=== PATIENT | male | born 1980 | race African-American/Black ===

== ENCOUNTER 2017-06-18 04:05 | Emergency (ER) | payer MEDICARE ==
[2017-06-18 06:51] LABS: #Basophils 0.1 thou/uL (0.0-0.2); #Eosinphils 0.4 thou/uL (0.0-0.7); #Lymphocytes 2.7 thou/uL (1.20-3.40); #Monocytes 0.8 thou/uL (0.11-0.59); #Neutrophils 7.9 thou/uL (1.40-6.50); %Basophils 0.9 % (0.0-1.0); %Eosinophils 3.3 % (0.0-10.0); %Lymphocytes 22.8 % (21.0-51.0); %Monocytes 6.7 % (0.0-10.0); Hematocrit 40.7 % (42.0-52.0); Mean Platelet Volume 9.5 fL (7.4-10.4); White Blood Cell (WBC) Count 11.9 thou/uL (4.8-10.8)
== END 2017-06-18 07:32 | disposition home or self-care (01) ==
LOC: ERS 04:05
DX: R19.7 Diarrhea, unspecified (principal); E78.5 Hyperlipidemia, unspecified; I11.0 Hypertensive heart disease with heart failure; I50.9 Heart failure, unspecified; E11.9 Type 2 diabetes mellitus without complications; H54.7 Unspecified visual loss; F17.220 Nicotine dependence, chewing tobacco, uncomplicated; Z86.73 Personal history of transient ischemic attack (TIA), and cerebral infarction without residual deficits; Z79.4 Long term (current) use of insulin; Z79.899 Other long term (current) drug therapy
CPT/HCPCS: 36415; 85025; 99285

== ENCOUNTER 2018-03-06 07:08 | Emergency (ER) | payer MEDICARE ==
[2018-03-06] MEDS ORDERED: diphenhydrAMINE 50 MG/ML VIAL ONE (07:30)
[2018-03-06 07:53] LABS: #Basophils 0.1 thou/uL (0.0-0.2); #Eosinphils 0.3 thou/uL (0.0-0.7); #Lymphocytes 2.3 thou/uL (1.20-3.40); #Monocytes 0.8 thou/uL (0.11-0.59); #Neutrophils 8.2 thou/uL (1.40-6.50); %Basophils 0.8 % (0.0-1.0); %Eosinophils 2.8 % (0.0-10.0); %Lymphocytes 19.3 % (21.0-51.0); Hemoglobin 11.3 g/dL (14.0-18.0); Mean Corpuscular HGB CONC 31.9 g/dL (32.0-36.0); Mean Corpuscular Hemoglobin 27.2 pg (27.0-31.0); Mean Corpuscular Volume 85.1 fL (78.0-98.0); Mean Platelet Volume 8.9 fL (7.4-10.4); Platelet Count 330 thou/uL (130-400); RBC Distribution Width 13.3 % (11.5-14.5); Red Blood Cell (RBC) Count 4.17 mill/uL (4.70-6.10); White Blood Cell (WBC) Count 11.7 thou/uL (4.8-10.8)
[2018-03-06 08:12] LABS: ALT (SGPT) 20 U/L (8-55); AST (SGOT) 18 U/L (5-34); Acetaminophen Less than 6.0 mcg/mL (10.0-30.0); Albumin 3.3 g/dL (3.5-5.0); Alcohol Less than 10 mg/dL (Less than 10); Alkaline Phosphatase 130 U/L (40-150); Anion Gap 14 mmol/L (10-20); BUN (Urea Nitrogen) 45 mg/dL (8.9-20.6); Bilirubin, Total 0.8 mg/dL (0.2-1.2); Calc. Creatinine Clearance 0 mL/min (70-130); Calcium 8.9 mg/dL (7.8-10.44); Carbon Dioxide 23 mmol/L (22-29); Chloride 106 mmol/L (98-107); Estimated GFR-MDRD 35; Globulin 3.9 g/dL (2.4-3.5); Glucose 150 mg/dL (70-105); Potassium 4.5 mmol/L (3.5-5.1); Protein, Total 7.2 g/dL (6.0-8.3); Salicylate Less than 8.0 mg/dL (15.0-30.0); Sodium 138 mmol/L (136-145)
--- NOTE | 2018-03-06 08:29 | CT ---
CT OF THE BRAIN WITHOUT CONTRAST: Date: 03/06/18 COMPARISON: 02/06/16. HISTORY: Involuntary muscle spasms with twitching in the arm and leg. TECHNIQUE: Multiple contiguous axial images were obtained in a CT of the brain without contrast. FINDINGS: The brain is normal in morphology and attenuation without focal lesions or confluent areas of infarct ion. There is no evidence of hydrocephalus, intracranial hemorrhage, or extra-axial fluid collection. The calvarium and overlying soft tissues are unremarkable. Mucus retention cysts are seen in bilatera l maxillary sinuses. The mastoid air cells are well aerated. IMPRESSION: No evidence of acute intracranial abnormality. POS: [facility]
[2018-03-06 10:04] LABS: Bilirubin Negative (Negative); Blood, Urine Negative (Negative); Clarity CLEAR (Clear); Glucose, Urine (Dipstick) Negative (Negative); Leukocyte Negative (Negative); Nitrite Negative (Negative); Protein, Urine (Dipstick) 30 mg/dL (Neg-Trace); Specific Gravity, Urine 1.008 (1.002-1.036); pH, Urine 5.5 (5.0-9.0)
[2018-03-06 10:05] LABS: Bacteria/HPF None Seen HPF (None Seen); Hyaline Casts/LPF 0-3 HYALINE CAST LPF (0-3 Hyaline); Pathc Cast-AUWi Flag 0.29 (0-2.49); RBC/HPF None Seen HPF (0-3); Squamous Epithelial 0-3 HPF (0-3); WBC/HPF 0-3 HPF (0-3)
[2018-03-06 10:15] LABS: Amphetamine Not Detected (NotDetected); Barbiturates Screen Not Detected (NotDetected); Benzodiazepine Screen Not Detected (NotDetected); Cocaine Metabolite Screen Not Detected (NotDetected); Medtox Control Line Valid? VALID (VALID); Medtox Reader # READER 4; Methadone Not Detected (NotDetected); Methamphetamine Not Detected (NotDetected); Opiate Screen Not Detected (NotDetected); Oxycodone Screen Not Detected (NotDetected); Phencyclidine (PCP) Not Detected (NotDetected); THC/Cannabinoid Screen Not Detected (NotDetected); Tricyclic Screen Not Detected (NotDetected)
== END 2018-03-06 11:01 | disposition home or self-care (01) ==
LOC: ERS 07:08
DX: G25.71 Drug induced akathisia (principal); E78.5 Hyperlipidemia, unspecified; E11.9 Type 2 diabetes mellitus without complications; I11.0 Hypertensive heart disease with heart failure; I50.9 Heart failure, unspecified; F17.220 Nicotine dependence, chewing tobacco, uncomplicated; Z86.73 Personal history of transient ischemic attack (TIA), and cerebral infarction without residual deficits; Z79.899 Other long term (current) drug therapy; Z79.891 Long term (current) use of opiate analgesic; Z79.4 Long term (current) use of insulin
CPT/HCPCS: 36415; 70450; 80053; 80306; 80307; 81003; 81015; 85025; 96361; 96374; J1200

== ENCOUNTER 2018-11-05 20:26 | Inpatient (IN) | payer MEDICARE ==
[2018-11-05 20:51] LABS: #Basophils 0.2 thou/uL (0.0-0.2); #Eosinphils 0.4 thou/uL (0.0-0.7); #Neutrophils 8.3 thou/uL (1.40-6.50); %Basophils 1.6 % (0.0-1.0); %Eosinophils 2.9 % (0.0-10.0); %Lymphocytes 23.2 % (21.0-51.0); %Monocytes 7.6 % (0.0-10.0); %Neutrophils 64.7 % (42.0-75.0); Hemoglobin 14.2 g/dL (14.0-18.0); Mean Corpuscular HGB CONC 30.3 g/dL (32.0-36.0); Mean Corpuscular Hemoglobin 26.1 pg (27.0-31.0); Mean Platelet Volume 9.8 fL (7.4-10.4); Platelet Count 374 thou/uL (130-400); RBC Distribution Width 13.6 % (11.5-14.5); Red Blood Cell (RBC) Count 5.46 mill/uL (4.70-6.10); White Blood Cell (WBC) Count 12.8 thou/uL (4.8-10.8)
[2018-11-05 21:00] LABS: Prothrombin Time 13.6 SEC (12.0-14.7)
[2018-11-05 21:01] LABS: PTT 21.3 SEC (22.9-36.1)
--- NOTE | 2018-11-05 21:11 | CT ---
CT OF THE BRAIN WITHOUT CONTRAST: 11/05/18 INDICATION: History of left sided weakness since 6 a.m. yesterday. COMPARISON: Prior CT of the brain dated 03/06/18. FINDINGS: There is a new hypodensity seen within the posterior right globus pallidus as well as portions of the right thalamus suspicious for acute to subacute lacunar infarctions. The right thalamic infarct appe ars more acute than the right posterior globus pallidus infarct. The right globus pallidus infarct ap pears more subacute to chronic in nature. There is a chronic lacunar infarction involving the left ce rebellar hemisphere. Septum pellucidum and third ventricle are midline. No acute intracranial hemorrh age or hydrocephalus is present. Skull and extracranial soft tissues are unremarkable. IMPRESSION: 1. Subacute to chronic appearing right posterior globus pallidus lacunar infarction. 2. Acute appearing lacunar infarction involving the right thalamus. 3. Findings called to Dr. Bravo at 8:53 p.m. on 11/05/18. Code CR POS: [facility]
[2018-11-05 21:15] LABS: ALT (SGPT) 10 U/L (8-55); AST (SGOT) 14 U/L (5-34); Albumin 3.1 g/dL (3.5-5.0); Alkaline Phosphatase 167 U/L (40-150); Anion Gap 14 mmol/L (10-20); BUN (Urea Nitrogen) 16 mg/dL (8.9-20.6); Bilirubin, Total 0.7 mg/dL (0.2-1.2); Calc. Creatinine Clearance 0 mL/min (70-130); Calcium 9.4 mg/dL (7.8-10.44); Carbon Dioxide 28 mmol/L (22-29); Chloride 100 mmol/L (98-107); Estimated GFR-MDRD 59; Globulin 4.2 g/dL (2.4-3.5); Glucose 287 mg/dL (70-105); Potassium 3.3 mmol/L (3.5-5.1); Protein, Total 7.3 g/dL (6.0-8.3); Sodium 139 mmol/L (136-145)
--- NOTE | 2018-11-05 22:18 | PDOC.FPRHP ---
- History of Present Illness Chief Complaint: L-sided weakness & paresthesias History of Present Illness: The patient is a 38YO AAM with a PMH significant for 5 previous CVAs, morbid obesity and poorly controlled IDDMII and HTN who presented to the ED with a CC of L-sided paresthesias and weakness that had gotten progressively worse over the course the day of presentation. Per the patient, he first began to have L- sided paresthesias about 1 day prior to presentation. Then, over the course of today he developed some dysarthria and left-sided drooling as well as weakness in his left arm and leg that became so severe he had difficulty walking even with his walker. This prompted him to then go to the ED for further evaluation. The patient denies any associated chest pain, SOB, vision changes, or syncope. He did endorse improvement in his weakness since arriving to the ED. ED Course: 10mg Hydralazine & 325mg ASA - Allergies/Adverse Reactions Allergies Allergy/AdvReac Type Severity Reaction Status Date / Time No Known Drug Allergies Allergy Verified 11/06/18 03:05 - Home Medications Medication Instructions Recorded Confirmed Type Furosemide [Lasix] 40 mg PO DAILY 06/25/13 02/06/16 History Lisinopril [Zestril] 20 mg PO BID 06/25/13 02/06/16 History Acetaminophen [Tylenol Regular 650 mg PO Q4HR PRN 06/30/13 02/06/16 History Strength] Artificial Tears [Tears Naturale 1 - 2 drop EA EYE ASDIR PRN 10/24/13 02/06/16 History Free] Insulin Detemir [Levemir Flexpen] 40 units SQ QAM 10/24/13 02/06/16 History Carvedilol [Coreg] 25 mg PO BID 11/10/13 02/06/16 History metFORMIN HCl 1,000 mg PO BID- 11/10/13 02/06/16 History Amlodipine [Norvasc] 5 mg PO DAILY 03/15/15 02/06/16 History Aspirin 325 mg PO DAILY 03/15/15 02/06/16 History Isosorbide Mononitrate 20 mg PO TID 03/15/15 02/10/16 History Spironolactone [Aldactone] 25 mg PO QAM- 03/15/15 02/06/16 History Atorvastatin Calcium [Lipitor] 80 mg PO HS 02/10/16 02/10/16 History Calcium Carbonate [Tums] 1,000 mg PO PRN PRN #0 tab 02/10/16 Rx Pantoprazole [Protonix] 40 mg PO DAILY #0 tab 02/10/16 Rx - History PMHx: CVA in 2015 w/ possibly 4 other CVAs per patient and mother, HLD, HTN, IDDMII, morbid obesity, 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 No EtOH or drug use. - Review of Systems General: denies: fever/chills, weight/appetite/sleep changes Eyes: denies: eye pain, vision changes ENT: reports: other (no sore throat). denies: rhinorrhea Respiratory: denies: cough, shortness of breath Cardiovascular: denies: chest pain, palpitation, edema Gastrointestinal: denies: nausea, vomiting, diarrhea, constipation Genitourinary: reports: other (no hematuria). denies: dysuria Skin: denies: rashes, lesions Musculoskeletal: denies: pain Neurological: reports: numbness, weakness, other (slurred speech). denies: syncope Psychological: denies: anxiety, depression - Vital signs BP: 203/156 HR: 72 RR: 16 Tmax: 98.1F Pox: 93% on RA Wt: 182 kg - Physical Exam Constitutional: NAD, awake, alert and oriented, other (morbidly obese) HEENT: normocephalic and atraumatic, EOMI, no scleral icterus, grossly normal hearing, MMM, oropharynx clear, other (blind in left eye w/ decreased pupillary repsonse to light; right pupil reactive to light) Neck: supple, FROM Heart: RRR, normal S1/S2 Lungs: CTAB, no respiratory distress, other (poor air movement 2/2 body habitus) Abdomen: soft, non-tender, bowel sounds present Musculoskeletal: normal structure, normal tone, other (decreased ROM in B/L LEs 2/2 body habitus) Neurological: other (4/5 strength in left extremities compared to 5/5 on the R; no dysmetria or pronator drift noted, proprioception intact; decreased sensation in V2-3 in right side of face w/ mild dysarthria, otherwise server support technician intact ) Skin: no rash/lesions, good turgor Heme/Lymphatic: no unusual bruising or bleeding, no purpura, no petechia Psychiatric: normal mood and affect, good judgment and insight, intact recent and remote memory FMR H&P: Results - Labs Result Diagrams: 11/05/18 20:11/06/18 05:22 Lab results: WBC 12.8 thou/uL (4.8-10.8) H 11/05/18 20:29 Hgb 14.2 g/dL (14.0-18.0) 11/05/18 20: Hct 46.9 % (42.0-52.0) 11/05/18 20: MCV 86.0 fL (78.0-98.0) 11/05/18 20: Plt Count 374 thou/uL (130-400) 11/05/18 20: Neutrophils % 64.7 % (42.0-75.0) 11/05/18 20:29 Sodium 139 mmol/L (136-145) 11/05/18 20:29 Potassium 3.3 mmol/L (3.5-5.1) L 11/05/18 20: Chloride 100 mmol/L (98-107) 11/05/18 20: Carbon Dioxide 28 mmol/L (22-29) 11/05/18 20: BUN 16 mg/dL (8.9-20.6) 11/05/18 20: Creatinine 1.62 mg/dL (0.7-1.3) H 11/05/18 20: Glucose 287 mg/dL (70-105) H 11/05/18 20:29 Calcium 9.4 mg/dL (7.8-10.44) 11/05/18 20: Total Bilirubin 0.7 mg/dL (0.2-1.2) 11/05/18 20: AST 14 U/L (5-34) 11/05/18 20: ALT 10 U/L (8-55) 11/05/18 20:29 Alkaline Phosphatase 167 U/L (40-150) H 11/05/18 20:29 Serum Total Protein 7.3 g/dL (6.0-8.3) 11/05/18 20:29 Albumin 3.1 g/dL (3.5-5.0) L 11/05/18 20:29 - EKG Interpretation EKG: NSR - Radiology Interpretation CT scan - head Status: report reviewed by me (subacute to chronic R posterior lacunar infact w / acute R lacunar infarct involving the thalamus) FMR H&P: A/P - Problem List (1) CVA (cerebral vascular accident) Current Visit: Yes Status: Acute Code(s): I63.9 - CEREBRAL INFARCTION, UNSPECIFIED Qualifiers: Laterality of affected vessel: right (2) Malignant hypertension Current Visit: Yes Status: Active Code(s): I10 - ESSENTIAL (PRIMARY) HYPERTENSION (3) DMII (diabetes mellitus, type 2) Current Visit: Yes Status: Chronic Qualifiers: Diabetes mellitus snf insulin use: with snf use Diabetes mellitus complication detail: with diabetic retinopathy (4) Dyslipidemia Current Visit: Yes Status: Chronic Code(s): E78.5 - HYPERLIPIDEMIA, UNSPECIFIED (5) Morbid obesity Current Visit: Yes Status: Chronic Code(s): E66.01 - MORBID (SEVERE) OBESITY DUE TO EXCESS CALORIES (6) (HFpEF) heart failure with preserved ejection fraction Current Visit: Yes Status: Chronic Code(s): I50.30 - UNSPECIFIED DIASTOLIC ( CONGESTIVE) HEART FAILURE - Plan Acute ischemic CVA: - Found on CT involving R thalamus. Stroke team consulted in the ED. Outside window for TPA but symptoms improved slightly s/p 325mg ASA in the ED. - Will admit to stroke unit for monitoring overnight and consult neurology in the AM. - Will allow permissive HTN through ~0900 tomorrow but will treat BPs >210/120 w / PRN labetalol. - Will continue 325mg ASA QD and statin therapy as well. - Will get an ECHO and MRA of head and neck in the AM. Malignant HTN - Will allow permissive HTN as described above through tomorrow AM. - Will give a 1x dose of norvasc 10mg HS tonight and will start on IGNACIO antihypertensive therapy tomorrow after 0900. PHONG vs. CKDIII: - eGFR of 59 which appears to be within baseline range per chart review. Could just be 2/2 severely uncontrolled HTN. s/p 1L in the ED. - Will continue to monitor renal function w/ QD BMPs. Hypokalemia: - K of 3.3 on admission. - Will get a repeat in the AM and replace PRN. 3. CKD III vs PHONG - Current GFR 59, similar to previous GFR - In ER, had gotten a fluid bolus. - Plan, monitor with routine morning lab, but does not appear to much change from baseline. Will work on his HTN/DM HLD - Will resume statin therapy. - FLP also ordered to assess current lipid levels as patient has only been taking DM meds since he has not seen a PCP in years. DMII w/ retinopathy - BG elevated on presentation. Will get an A1c since patient has no PCP. Will resume home levemir dosing in the AM but will cover w/ mild SSI overnight. -ACHS accuchecks and hypoglycemia protocol. HFpEF - Aware, last echo in 2015 showed preserved EF of 50-55%. Repeat ECHO ordered for the AM for CVA workup. - Will fluid restrict and start on HH diet. - Will resume appropriate meds in the AM. h/o multiple CVAs - Aware, will resume ASA and statin therapy. Morbid obesity - Aware, will encourage lifestyle changes. FMR H&P: Upper Level - Pertinent history 38M with morbid obesity, prior history of stroke presents for left sided weakness, going on for 4 days, but with most recent episode 17 hours before this interview. His left side weakness involve both upper and lower extremities. Family member add that he had slurred speech. His symptom onset was sudden. In the ER, he received nitro which apparently resolved some of his symptom. At this time, he still feels weaker on left side, but improved. He has history of htn, but has not taken any HTN medication for "over a year". He says he gets his diabetes medication from an "insurance doctor". In ER, he has gotten [address] head shows subacute right posterior globus pallidus lacunar infarct and acute lacunar infarct of right thalmus - Pertinent findings Gen: Poor historian, grossly alert and oriented x3 HEENT: Normocephalic. Vision and hearing grossly intact. Moist mucosal membrane. Left eye noted to have fixed pupil, discoloration CV: Appear RRR, difficult auscultation due to body habitus Resp: Appear CTA, difficult due to body habitus GI: Normoactive, soft, pannus present Ext: No edema noted Neuro: 5/5 on right extremities, 4/5 on left. Normal tone. Sensation normal except subjective decrease sensation to fine touch on left face in V2-3 distribution. CNII-XII grossly intact except decreased left sided shoulder shrug. - Plan Date/Time: 11/05/181 I, [Phillip Polanco], have evaluated this patient and agree with findings/plan as outlined by internal salesperson resident. Pertinent changes/additions are listed here. 1. Acute ischemic stroke - Acute lacnuar infarct of rt thalamus, outside of TPA time range and in vessel that woudl be too small for thrombectomy - Will continue stroke work up and maximize medical treatment of his contributing medical issues. - Dispo to stroke, will eventually may need rehab placement - Will get neuro consult, PT/OT, dysphagia screening, MRI/MRA head/neck, cardiac echo, A1c, HLD - Start on amlodipine 10, labetol 10 for BP over 220/120 2. Hypokalemia - Asymptomatic At 3.3. One time dose of IV potassium 40. - Recheck at next bmp. 3. CKD III vs PHONG - Current GFR 59, similar to previous GFR - In ER, had gotten a fluid bolus. - Plan, monitor with routine morning lab, but does not appear to much change from baseline. Will work on his HTN/DM 4. DM2 - Chronic issue - Hold metformin in prep for imaging - SSI and continue home insulin, diabetic diet. A1c as he has no PCP at moment Addendum - Attending - Attending Attestation Date/Time: 11/06/18 0705 I personally evaluated the patient and discussed the management with Dr. Tavarez and Sherri on day of admission 11/05. I agree with and repeated the History, Examination, Assessment and Plan documented above with any addition or exceptions noted below. Admit to neuro. Standard BP control (see Dr. Polanco's parameters), ST/OT/PT, medical comorbidity management. Bring sugars down < 200.
[2018-11-05] MEDS ORDERED: Aspirin 325 MG TAB ONE (22:34)
[2018-11-05] MEDS ORDERED: hydrALAZINE 20 MG/ML VIAL ONE (23:50)
[2018-11-06] MEDS ORDERED: Acetaminophen 325 MG TAB PO PRN ×2 (02:22→03:14)
[2018-11-06] MEDS ORDERED: Ondansetron ODT 4 MG TAB SL PRN (02:22)
[2018-11-06] MEDS ORDERED: Sodium Chloride 0.9% 1,000 ML IV SCH (02:22)
[2018-11-06] MEDS ORDERED: Ondansetron PF 4 MG/2 ML Vial IVP PRN (02:22)
[2018-11-06 02:56] VITALS: BMI 58.4
[2018-11-06] MEDS ORDERED: Labetalol HCl 100 MG/20 ML VIAL SLOW IVP PRN (03:14)
[2018-11-06] MEDS ORDERED: Dextrose 50% Abboject 50 ML SYRINGE SLOW IVP PRN (03:14)
[2018-11-06] MEDS ORDERED: Ondansetron ODT 4 MG TAB PO PRN (03:14)
[2018-11-06] MEDS ORDERED: Amlodipine 10 MG TAB PO SCH (03:14)
[2018-11-06] MEDS ORDERED: Calcium Carbonate 500 MG ChewTAB PO PRN (03:14)
[2018-11-06] MEDS ORDERED: Dextrose 5% in Water 1,000 ML IV PRN (03:14)
[2018-11-06] MEDS ORDERED: HumaLOG 300 UNITS/3 ML VIAL SC PRN (03:14)
[2018-11-06 06:10] LABS: Hemoglobin A1c 14.1 % (4.0-6.0)
[2018-11-06 06:24] LABS: Anion Gap 13 mmol/L (10-20); BUN (Urea Nitrogen) 15 mg/dL (8.9-20.6); Calc. Creatinine Clearance 173 mL/min (70-130); Calcium 9.1 mg/dL (7.8-10.44); Carbon Dioxide 26 mmol/L (22-29); Cardiac Risk 9.2 (Less than 4.5); Chloride 103 mmol/L (98-107); Cholesterol 321 mg/dl (< 200 Desired); Estimated GFR-MDRD 64; Glucose 224 mg/dL (70-105); HDL Cholesterol 35 mg/dL (>60 Neg Risk); LDL Cholesterol, Calculated 246 mg/dL; Potassium 3.7 mmol/L (3.5-5.1); Sodium 138 mmol/L (136-145); Triglycerides 199 mg/dL (Less than 150)
--- NOTE | 2018-11-06 06:36 | PDOC.FM ---
- Subjective Subjective: Endorses left sided weakness similar to right sided weakness he had in the past with prior stroke. Went to rehab after last stroke for PT/OT. Uses a walker to ambulate at home. Blind in left eye 2/2 uncontrolled DM. No events overnight. Has not seen PCP in years due to transportation and felt that he always "just told me to lose weight and refilled my medications." - Objective MAR Reviewed: Yes Vital Signs & Weight: Vital Signs (12 hours) Temp Pulse Resp BP Pulse Ox 11/06/18 03:17 78 164/95 H 11/06/18 02:07 98.6 F 67 20 195/104 H 95 Weight Weight 179.668 kg I&O: 11/04/18 11/05/18 11/06/18 06:59 06:59 06:59 Intake Total 490 Output Total 650 Balance -160 Result Diagrams: 11/05/18 20:29 11/06/18 05:22 Phys Exam - Physical Examination Constitutional: NAD morbidly obese corneal clouding in left eye. Right RRL Neck: supple Respiratory: no wheezing, clear to auscultation bilateral Cardiovascular: RRR, no significant murmur Gastrointestinal: soft, non-tender, positive bowel sounds Musculoskeletal: no edema Neurological: moves all 4 limbs right foot myclonus. DTR 2+ patellar and biceps. 5/5 strength bilateral wrist vasc tech, hip F/E, plantarflexion/dorsiflexion Psychiatric: normal affect, A&O x 3 Skin: normal turgor Dx/Plan (1) CVA (cerebral vascular accident) Code(s): I63.9 - CEREBRAL INFARCTION, UNSPECIFIED Status: Acute Qualifiers: Laterality of affected vessel: right (2) CHF (congestive heart failure) Code(s): I50.9 - HEART FAILURE, UNSPECIFIED Status: Acute (3) Malignant hypertension Code(s): I10 - ESSENTIAL (PRIMARY) HYPERTENSION Status: Active (4) (HFpEF) heart failure with preserved ejection fraction Code(s): I50.30 - UNSPECIFIED DIASTOLIC (CONGESTIVE) HEART FAILURE Status: Chronic (5) DMII (diabetes mellitus, type 2) Status: Chronic Qualifiers: Diabetes mellitus snf insulin use: with long term care pharmacist use Diabetes mellitus complication detail: with diabetic retinopathy (6) Dyslipidemia Code(s): E78.5 - HYPERLIPIDEMIA, UNSPECIFIED Status: Chronic (7) Morbid obesity Code(s): E66.01 - MORBID (SEVERE) OBESITY DUE TO EXCESS CALORIES Status: Chronic (8) Cardiomyopathy Code(s): I42.9 - CARDIOMYOPATHY, UNSPECIFIED Status: Active (9) Diabetes mellitus type 1 Code(s): E10.9 - TYPE 1 DIABETES MELLITUS WITHOUT COMPLICATIONS Status: Active - Plan Plan: 38yo male with hx of CVAs presents with Acute ischemic CVA Acute ischemic CVA: - CT: subacute to chronic R posterior lacunar infact w/ acute R lacunar infarct involving thalamus - Stroke team consulted in ED. Outside window for TPA, symptoms improved slightly s/p 325mg ASA - Consulted Neurology - Permissive HTN until 0900, restarting home BP meds at 1000. Until then treat BPs >210/120 with PRN labetalol. - Continue ASA & statin - Echo & CTA of head/neck ordered HTN - Permissive HTN until 0900. Until then treat BPs >210/120 with PRN labetalol. - Will start Amlodipine, Lisinopril- HCTZ this AM PHONG vs. CKDIII - Initial GFR 59, likely pts baseline. Likely 2/2 uncontrolled HTN - Continue to monitor with BMPs DMII - A1c: 14.1% - Continue home levemir - SSI and hypoglycemic protocol - ACHS accuchecks, HH/CC diet HFpEF - Echo 2016: EF 50-55%. - Echo today - Strict I&Os, daily wt, fluid restriction, HH/CC diet - Continue home meds h/o multiple CVAs - Continue ASA and Statin HLD - Continue home meds Morbid obesity Hypokalemia, resolved Code Status: FULL DVT ppx: Lovenox PCP: None Addendum - Attending - Attending Attestation Date/Time: 11/06/18 1046 I personally evaluated the patient and discussed the management with Dr. Melchor. I agree with the History, Examination, Assessment and Plan documented above with any addition or exceptions noted below. Patient here with suspected repeat CVA. He has uncontrolled HTN, DM, and HLD. We will obtain MRI. Attempt to improve HTN control, glucose control, and add statin. We will also escalate therapy to ASA and Plavix. Stroke team and Neuro consult. Therapy services. Echo being performed at this time and f/u with report. If systolic dysfxn noted will need to cease Norvasc. Continue BB and ACEi for BP control.
[2018-11-06] MEDS: HumaLOG 300 UNITS/3 ML VIAL SC PRN ×3 (06:41→17:56)
[2018-11-06] MEDS: Enoxaparin Sodium 60 MG/0.6 ML SYRINGE SC SCH (07:49)
[2018-11-06] MEDS ORDERED: INSULIN GLARGINE SC SCH (08:00)
[2018-11-06] MEDS ORDERED: Famotidine 20 MG TAB PO PRN (08:54)
[2018-11-06] MEDS: Lisinopril/Hydrochlorothiazide 10 mg/12.5 mg Tablet PO SCH (08:58)
[2018-11-06] MEDS ORDERED: Aspirin 325 mg Enteric Coated Tablet PO SCH (09:00)
[2018-11-06] MEDS ORDERED: INSULIN DETEMIR 40 UNIT SQ SCH (09:00)
[2018-11-06] MEDS ORDERED: Famotidine 20 MG TAB PO SCH (09:00)
[2018-11-06] MEDS ORDERED: Aspirin 325 MG TAB PO SCH (09:00)
[2018-11-06] MEDS ORDERED: Potassium Chloride 20 MEQ TAB PO SCH (09:00)
[2018-11-06] MEDS ORDERED: Isosorbide Mononitrate 20 MG TAB PO SCH ×2 (10:00→15:00)
[2018-11-06] MEDS ORDERED: Carvedilol 25 MG TAB PO SCH ×2 (10:00→21:00)
[2018-11-06] MEDS ORDERED: Lisinopril 20 MG TAB PO SCH ×2 (10:00→21:00)
--- NOTE | 2018-11-06 14:01 | CT ---
CTA OF THE NECK UTILIZING IV COTNRAST AND 33D REFORMATTED IMAGING: INDICATION: History of stroke alert last night with left-sided weakness and facial droop with slurring. COMPARISON: Prior CTA of the head dated 02/06/2016. FINDINGS: The common carotid and internal carotid arteries are tortuous. The common carotids have a retrophary ngeal course as well as portions of the internal carotid artery within the cervical segment. No defi nite hemodynamically significant stenosis is evident. Again, there is very poor opacification of the right vertebral artery suspicious multifocal areas of occlusion. There is reconstitution of flow wi thin a diminutive-appearing distal right vertebral artery at the level of C1. The left vertebral art ugo is dominant and appears to be patent. There is limited detail due to the patient's body habitus and beam scattered artifact. No definite pathologically enlarged lymph nodes are evident. Visualized parotid, submandibular, and thyroid glands appear within normal limits. The visualized aerodigestive tract reveals no definite a cute abnormality. There is prominence of the palatine tonsils that does heavily narrow the oral cavi ty best seen on image 163 of series 2. The lung apices are clear. No definite acute osseous abnormality is evident. IMPRESSION: 1. Stable areas of multifocal occlusion involving a diminutive-appearing right vertebral artery. There is reconstitution of flow of the right vertebral artery at the level of the C1 level. 2. No hemodynamically significant stenosis is seen involving the internal carotid arteries, comm on carotid arteries, or left vertebral artery. 3. Prominence of the palatine tonsils causes prominent narrowing of the oropharynx. POS: [facility]
[2018-11-06] MEDS ORDERED: Iopamidol 370 76% 100 ML VIAL ONE (16:35)
[2018-11-06] MEDS: Atorvastatin Calcium 40 MG TAB PO SCH (20:54)
--- NOTE | 2018-11-07 06:23 | PDOC.FM ---
- Subjective Subjective: No acute events overnight. Patient reports difficulty with deep inspiration this AM. Denies chest pain or palpitations. Patient reports ambulating with PT yesterday. States his weakness has improved overall with residual weakness in the left lower extremity. - Objective MAR Reviewed: Yes Vital Signs & Weight: Vital Signs (12 hours) Temp Pulse Resp BP Pulse Ox 11/07/18 04:00 98.3 F 85 19 155/91 H 97 11/07/18 00:00 98.7 F 66 20 131/70 96 11/06/18 20:00 99.3 F 69 19 140/74 93 L Weight Weight 179.668 kg I&O: 11/05/18 11/06/18 11/07/18 06:59 06:59 06:59 Intake Total 490 700 Output Total 650 550 Balance -160 150 Result Diagrams: 11/05/18 20:29 11/06/18 05:22 Phys Exam - Physical Examination Constitutional: NAD HEENT: PERRLA, moist MMs, sclera anicteric Neck: supple, full ROM Respiratory: no wheezing, no rales, no rhonchi, clear to auscultation bilateral shallow breaths noted Cardiovascular: RRR, no significant murmur Gastrointestinal: soft, non-tender, no distention Musculoskeletal: no edema Neurological: normal sensation, moves all 4 limbs patient with LLE weakness, 4/5 strength Psychiatric: normal affect, A&O x 3 Skin: no rash, normal turgor, cap refill <2 seconds Dx/Plan (1) (HFpEF) heart failure with preserved ejection fraction Code(s): I50.30 - UNSPECIFIED DIASTOLIC (CONGESTIVE) HEART FAILURE Status: Chronic (2) CVA (cerebral vascular accident) Code(s): I63.9 - CEREBRAL INFARCTION, UNSPECIFIED Status: Acute Qualifiers: Laterality of affected vessel: right (3) Dyslipidemia Code(s): E78.5 - HYPERLIPIDEMIA, UNSPECIFIED Status: Chronic (4) Morbid obesity Code(s): E66.01 - MORBID (SEVERE) OBESITY DUE TO EXCESS CALORIES Status: Chronic - Plan Plan: 38yo male with hx of CVAs presents with Acute ischemic CVA Acute ischemic CVA - CT: subacute to chronic R posterior lacunar infact w/ acute R lacunar infarct involving thalamus - Stroke team consulted in ED. Outside window for TPA, symptoms improved slightly s/p 325mg ASA - Consulted Neurology, appreciate recs - Monitor BPs, amlodipine and lisinopril/HCTZ started - CTA: stable areas of multifocal occlusion involving a diminutive-appearing right vertebral artery; reconstitution of right vertebral artery at level of C1. No significant stenosis of internal carotids, common carotids, or left vertebral artery. Echo: 1/3 diastolic dysfunction, EF not seen well, mildly dilated LA. MRI unable to perform due to body habitus. - Continue ASA & statin - CM consulted for DC planning: HH vs SNF HTN - Permissive HTN period allowed. - Amlodipine, Lisinopril/HCTZ started for BP control HPONG vs. CKDIII - Initial GFR 59, likely pts baseline. Likely 2/2 uncontrolled HTN - Continue to monitor with BMPs DMII - A1c: 14.1% - Continue home levemir - SSI and hypoglycemic protocol - ACHS accuchecks, HH/CC diet HFpEF - Echo 2016: EF 50-55%. - Echo 11/06: LV not well seen, 1/3 diastolic dysfunction, mildly dilated LA. Could consider LIANG, but unlikely to change number operator. Will refer to CHF clinic upon discharge. - BNP Pending - Strict I&Os, daily wt, fluid restriction, HH/CC diet - Continue home meds h/o multiple CVAs - Continue ASA and Statin HLD - Continue home meds PEGGY - likely due to body habitus - CTA showed prominent palatine tonsils with prominent narrowing of oropharynx. May need ENT referral outpatient. Sleep study outpatient. Morbid obesity Hypokalemia, resolved DISPO: likely dc in 1-2 days Addendum - Attending - Attending Attestation Date/Time: 11/07/18 0634 I personally evaluated the patient and discussed the management with Dr. Carvajal. I agree with the History, Examination, Assessment and Plan documented above with any addition or exceptions noted below. Patient stable this morning, reports some tightness with inspiration. His neurological deficit has improved quite a bit. Awaiting final therapy recommendations. On ASA/Plavix. Neuro consult pending. Continue to improved BP and BS control. Anticipate discharge in next day or so pending clinical course. Unable to obtain MRI due to body habitus and Echo poor quality due to the same.
[2018-11-07 07:45] LABS: #Basophils 0.1 thou/uL (0.0-0.2); #Eosinphils 0.3 thou/uL (0.0-0.7); #Lymphocytes 1.8 thou/uL (1.20-3.40); #Monocytes 0.7 thou/uL (0.11-0.59); #Neutrophils 6.5 thou/uL (1.40-6.50); %Basophils 0.7 % (0.0-1.0); %Eosinophils 3.5 % (0.0-10.0); %Lymphocytes 19.5 % (21.0-51.0); %Monocytes 7.3 % (0.0-10.0); Hemoglobin 12.8 g/dL (14.0-18.0); Mean Corpuscular HGB CONC 30.6 g/dL (32.0-36.0); Mean Corpuscular Volume 84.9 fL (78.0-98.0); Mean Platelet Volume 9.4 fL (7.4-10.4); Platelet Count 343 thou/uL (130-400); RBC Distribution Width 13.8 % (11.5-14.5); Red Blood Cell (RBC) Count 4.93 mill/uL (4.70-6.10); White Blood Cell (WBC) Count 9.4 thou/uL (4.8-10.8)
[2018-11-07] MEDS ORDERED: Insulin Glargine 42 UNITS in Pre-Filled Syringe 1 EACH SC SCH (08:00)
[2018-11-07 08:05] LABS: Anion Gap 10 mmol/L (10-20); BUN (Urea Nitrogen) 17 mg/dL (8.9-20.6); Calc. Creatinine Clearance 134 mL/min (70-130); Calcium 9.1 mg/dL (7.8-10.44); Carbon Dioxide 27 mmol/L (22-29); Chloride 103 mmol/L (98-107); Estimated GFR-MDRD 47; Glucose 206 mg/dL (70-105); Potassium 3.8 mmol/L (3.5-5.1); Sodium 136 mmol/L (136-145)
[2018-11-07] MEDS: HumaLOG 300 UNITS/3 ML VIAL SC PRN ×2 (08:14→11:56)
[2018-11-07] MEDS: Enoxaparin Sodium 60 MG/0.6 ML SYRINGE SC SCH (08:16)
[2018-11-07] MEDS: Lisinopril/Hydrochlorothiazide 10 mg/12.5 mg Tablet PO SCH (08:17)
[2018-11-07] MEDS: Amlodipine 10 MG TAB PO SCH (08:17)
[2018-11-07] MEDS: Clopidogrel Bisulfate 75 MG TAB PO SCH (08:17)
[2018-11-07] MEDS ORDERED: Amlodipine 5 MG TAB PO SCH (09:00)
[2018-11-07] MEDS ORDERED: Aspirin 81 mg Enteric Coated Tablet PO SCH (09:00)
[2018-11-07] MEDS: Insulin Glargine 40 UNITS in Pre-Filled Syringe 1 EACH SC SCH (09:53)
--- NOTE | 2018-11-07 11:29 | CON ---
DATE OF TELEMEDICINE CONSULTATION: 11/07/2018 CHIEF COMPLAINT: Acute stroke. HISTORY OF PRESENT ILLNESS: The patient is a 38-year-old man, who has had 5 strokes. He reports he is not on any anti-platelet agent at home. He developed numbness on the right side from a prior stroke and this Friday, he started to have numbness of the left side along with weakness. He was walking normally prior to this incident and he now feels that his arm is stronger, but left leg is still remaining weak 4 or 5 days later. He has slurred speech at times. He is having a difficult time taking a deep breath due to his positioning in the bed. There is no history of any incoordination or loss of vision due to this event. PAST MEDICAL HISTORY: The patient is diabetic and he is insulin-dependent diabetic. He has had 5 CVAs in the past, most recent is on the right side with right- sided numbness. He has hyperlipidemia, hypertension, morbid obesity, left eye blindness due to diabetic retinopathy, and cataract. PREVIOUS SURGICAL HISTORY: Bilateral cataract surgery, appendectomy, and left knee surgery. FAMILY HISTORY: Father has diabetes and coronary artery disease. Mother and brother have heart failure. Mother also is hypertensive. SOCIAL HISTORY: He used to smoke, now he only uses smokeless tobacco, not using any drugs. He has occasional alcohol, but none prior to this event. REVIEW OF SYSTEMS: PULMONARY: Positive for difficulty with breathing. GI: Negative for any diarrhea, vomiting, or nausea. NEUROLOGIC: Positive for numbness and weakness. ENT: Normal. OPHTHALMOLOGIC: Positive for left eye blindness. ENDOCRINE: Positive for diabetes. HEMATOLOGIC: Negative for anemia or bleeding diathesis. PSYCHOLOGIC: Negative for anxiety or depression. LABORATORY WORKUP: White count 9.4, hemoglobin 12.8, hematocrit 41.9, platelets 343. PT 13.6, INR 1.0, PTT 21.3. Chemistry; sodium 136, potassium 3.8, chloride 103, bicarb 27, BUN 17, creatinine 1.95, and glucose 206. DIAGNOSTIC STUDIES: CT of the head showed chronic subacute to chronic right posterior globus pallidus lacunar infarct, acute right thalamic lacune and he also has other chronic microvascular ischemic changes. CT angiography of the brain, head, and neck shows stable areas of multifocal occlusion involving a diminishing appearing right vertebral artery. There is reconstruction of flow in the right vertebral artery at the C1 level. No stenosis in the ICAs, common carotid to the left vertebral artery. Prominence of the palatine tonsils cause prominent narrowing of the oropharynx. PHYSICAL EXAMINATION: VITAL SIGNS: Blood pressure 151/95, temperature 98.2, pulse 89, and respiratory rate 20. GENERAL APPEARANCE: Somewhat overweight gentleman, who appears uncomfortable in bed due to difficulty taking a deep breath. CHEST: Clear vesicular breathing. CARDIOVASCULAR: S1 and S2 heard. No murmurs. ABDOMEN: Soft. NEUROLOGIC: Higher intellectual functions. Normal orientation to time, place, and person. Cranial nerves 2 through 12, left pupil has cataract. He is blind in the left eye. Right pupil 2 mm and reactive to light. He has right-sided numbness of the face, left side sensation is normal. Normal hearing bilaterally. No facial asymmetry was noted. Tongue midline. No atrophy noted. Normal elevation of palate. Motor bulk normal. Tone normal. Strength 5/5 bilaterally in upper and lower extremities. Muscle groups tested are iliopsoas, hamstrings, quadriceps, ankle dorsiflexion, plantar flexion, deltoid, biceps, triceps, wrist extension, flexion, finger extension and flexion bilaterally. Sensory examination, decreased sensation to touch in the right upper extremity, normal in both lower extremities and left upper extremity. The patient complained of tingling. Proprioception was normal in upper and lower extremities bilaterally. Deep tendon reflexes, 2 in the left knee jerk and right biceps, 1 in the triceps bilaterally and brachioradialis, and 1+ knee jerk on the right side. Cerebellar; normal [id number], [id number]. IMPRESSION: The patient is a 38-year-old man with diabetes, obesity, and hypertension. His echocardiogram is normal, but there is some limitation per his report that it is technically difficult. Hence, the CT of the head shows acute lacunar infarct in the right thalamic area. He seems to have uncontrolled diabetes and this could be most likely his cause of acute strokes. However, he is not on any anti-platelet agent and his examination currently shows normal strength, but decreased sensation in the right upper extremity. TREATMENT RECOMMENDATIONS: 1. Please start the patient on aspirin 325 mg per day. 2. Risk factor controls including diabetes and hypertension control. The patient is already on statin. Agree with atorvastatin. Please complete his workup including a LIANG. Consider MRI of the brain if possible due to his body weight and carotid ultrasound. We will follow up again tomorrow. Job ID: [id number] MTDD
--- NOTE | 2018-11-07 15:34 | EKG ---
Test Reason : Blood Pressure : / mmHG Vent. Rate : 078 BPM Atrial Rate : 078 BPM P-R Int : 172 ms QRS Dur : 096 ms QT Int : 394 ms P-R-T Axes : 019 -23 051 degrees QTc Int : 449 ms Normal sinus rhythm Voltage criteria for left ventricular hypertrophy No STEMI Abnormal ECG Confirmed by HORACIO JEONG M.D. ([id number]), market editor VIVIANA BRADLEY ([id number] on 11/07/2018 3:33:55 PM Referred By: Confirmed By:HORACIO JEONG M.D.
[2018-11-07] MEDS: Atorvastatin Calcium 40 MG TAB PO SCH (21:06)
[2018-11-07] MEDS: Insulin Glargine 10 UNITS in Pre-Filled Syringe 1 EACH SC SCH (21:07)
[2018-11-07] MEDS: Artificial Tear Sol 15 ML BOT EA EYE PRN (21:08)
--- NOTE | 2018-11-08 06:17 | PDOC.FM ---
- Subjective Subjective: NAEO. Patient resting comfortably in bed. Patient states he has ambulated to the bathroom and stood up with PT. Patient states he is willing to go to rehab to regain strength. Denies chest pain, palpitations, SOB, abdominal pain, NVD. - Objective MAR Reviewed: Yes Vital Signs & Weight: Vital Signs (12 hours) Temp Pulse Resp BP Pulse Ox 11/08/18 04:00 98.9 F 100 20 144/88 H 96 11/08/18 00:00 98.5 F 66 19 142/86 H 95 11/07/18 20:40 93 L 11/07/18 20:00 98.9 F 84 19 176/85 H 93 L Weight Weight 180.802 kg I&O: 11/06/18 11/07/18 11/08/18 06:59 06:59 06:59 Intake Total 490 700 720 Output Total 650 550 425 Balance -160 150 295 Result Diagrams: 11/07/18 07:38 11/08/18 06:45 Phys Exam - Physical Examination Constitutional: NAD HEENT: PERRLA, moist MMs, sclera anicteric Neck: supple, full ROM Respiratory: no wheezing, no rales, no rhonchi, clear to auscultation bilateral Cardiovascular: RRR, no significant murmur, no rub Gastrointestinal: soft, non-tender, no distention, positive bowel sounds Musculoskeletal: no edema left sided weakness in LLE, improved Psychiatric: normal affect, A&O x 3 Skin: no rash, normal turgor, cap refill <2 seconds Dx/Plan (1) (HFpEF) heart failure with preserved ejection fraction Code(s): I50.30 - UNSPECIFIED DIASTOLIC (CONGESTIVE) HEART FAILURE Status: Chronic (2) CVA (cerebral vascular accident) Code(s): I63.9 - CEREBRAL INFARCTION, UNSPECIFIED Status: Acute Qualifiers: Laterality of affected vessel: right (3) Dyslipidemia Code(s): E78.5 - HYPERLIPIDEMIA, UNSPECIFIED Status: Chronic (4) Morbid obesity Code(s): E66.01 - MORBID (SEVERE) OBESITY DUE TO EXCESS CALORIES Status: Chronic - Plan Plan: 38yo male with hx of CVAs presents with Acute ischemic CVA Acute ischemic CVA - CT: subacute to chronic R posterior lacunar infact w/ acute R lacunar infarct involving thalamus - Stroke team consulted in ED. Outside window for TPA, symptoms improved slightly s/p 325mg ASA - Consulted Neurology, appreciate recs. Will start 325 ASA, continue statin, and order LIANG per recommendations. - Monitor BPs, amlodipine and lisinopril/HCTZ started - CTA: stable areas of multifocal occlusion involving a diminutive-appearing right vertebral artery; reconstitution of right vertebral artery at level of C1. No significant stenosis of internal carotids, common carotids, or left vertebral artery. Echo: 1/3 diastolic dysfunction, EF not seen well, mildly dilated LA. MRI unable to perform due to body habitus. - CM consulted for DC planning: HH vs SNF. Rehab screen placed. HTN - Permissive HTN period allowed. - Amlodipine, Lisinopril/HCTZ started for BP control PHONG vs. CKDIII - Initial GFR 59, likely pts baseline. Likely 2/2 uncontrolled HTN - Continue to monitor with BMPs DMII - A1c: 14.1% - SSI and hypoglycemic protocol - ACHS accuchecks, HH/CC diet - Lantus HFpEF - Echo 2015: EF 50-55%. - Echo 11/06: LV not well seen, 1/3 diastolic dysfunction, mildly dilated LA. Will refer to CHF clinic upon discharge. Will order LIANG to complete work up per neuro recs. - Strict I&Os, daily wt, fluid restriction, HH/CC diet - Continue home meds h/o multiple CVAs - Continue ASA and Statin HLD - Continue home meds PEGGY - likely due to body habitus - CTA showed prominent palatine tonsils with prominent narrowing of oropharynx. May need ENT referral outpatient. Sleep study outpatient. Morbid obesity Hypokalemia, resolved DISPO: will need LIANG completed and dc pending dc placement/planning Addendum - Attending - Attending Attestation Date/Time: 11/08/18 [id number] I personally evaluated the patient and discussed the management with Dr. Carvajal. I agree with the History, Examination, Assessment and Plan documented above with any addition or exceptions noted below. Patient reports doing well and overall at baseline neuro status. He has been withholding fluids and he appears a little dry this morning, with Cr bump. Mild fluid repletion. Otherwise, BP and BS improved control with current meds. Will begin working on rehab or SNF placement for patient as he is agreeable to that. Continue ASA/Plavix.
[2018-11-08] MEDS: HumaLOG 300 UNITS/3 ML VIAL SC PRN ×3 (06:40→17:24)
[2018-11-08 07:19] LABS: Anion Gap 14 mmol/L (10-20); BUN (Urea Nitrogen) 18 mg/dL (8.9-20.6); Calc. Creatinine Clearance 99 mL/min (70-130); Calcium 8.8 mg/dL (7.8-10.44); Carbon Dioxide 23 mmol/L (22-29); Chloride 104 mmol/L (98-107); Estimated GFR-MDRD 34; Glucose 169 mg/dL (70-105); Potassium 3.7 mmol/L (3.5-5.1); Sodium 137 mmol/L (136-145)
[2018-11-08] MEDS ORDERED: Sodium Chloride 0.9% 1,000 ML IV SCH (07:30)
[2018-11-08] MEDS ORDERED: Lactated Ringer's 1,000 ML IV SCH (07:30)
[2018-11-08] MEDS: Artificial Tear Sol 15 ML BOT EA EYE PRN ×2 (08:19→21:39)
[2018-11-08] MEDS: Amlodipine 10 MG TAB PO SCH (08:26)
[2018-11-08] MEDS: Aspirin 325 mg Enteric Coated Tablet PO SCH (08:26)
[2018-11-08] MEDS: Enoxaparin Sodium 60 MG/0.6 ML SYRINGE SC SCH (08:27)
[2018-11-08] MEDS: Lisinopril/Hydrochlorothiazide 20 mg/12.5 mg Tablet PO SCH (08:27)
[2018-11-08] MEDS: Clopidogrel Bisulfate 75 MG TAB PO SCH (08:27)
[2018-11-08] MEDS: Insulin Glargine 40 UNITS in Pre-Filled Syringe 1 EACH SC SCH (08:28)
--- NOTE | 2018-11-08 13:05 | PRG ---
DATE OF TELEMEDICINE SERVICE: 11/08/2018 INTERVAL HISTORY: The patient is still complaining of tingling on the right side. Laboratory workup, no new lab since yesterday other than glucose 183 and his MRI is still pending. He is waiting for LIANG. PHYSICAL EXAMINATION: VITAL SIGNS: Blood pressure was 152/100, temperature 98.7, pulse 77, respiratory rate 20, and O2 sats 96%. NEUROLOGIC: Higher intellectual function. Normal orientation to time, place, and person. Cranial nerves 2-12 normal. No facial asymmetry. Tongue midline. Normal extraocular movements. He has a cataract and blindness in the left eye. Motor examination: Bulk normal, tone normal, strength 5/5 in upper and lower extremities bilaterally. Sensory examination: Tingling on the right side, but no deficit. IMPRESSION: The patient with a new onset thalamic infarct and he has significant risk factors with diabetes as well as hypertension. We are currently pending a transesophageal echocardiogram to evaluate his cardiac status. There is strong family history of heart failure. At this time, the patient is stable neurologically. RECOMMENDATIONS: Plan for aspirin 325 mg per day. MRI of brain if possible due to his body weight. Consider transfer to Physical Medicine and Rehab. Call Neurology if there are any further questions. Please make sure the patient is also on a statin. Job ID: [id number] MTDD
[2018-11-08] MEDS: Atorvastatin Calcium 40 MG TAB PO SCH (21:38)
[2018-11-08] MEDS: Insulin Glargine 10 UNITS in Pre-Filled Syringe 1 EACH SC SCH (21:39)
--- NOTE | 2018-11-09 05:55 | PDOC.FM ---
- Subjective Subjective: Patient reports improvement in symptoms. Denies any headache, blurry visionor chest pain. Says he was able to walk to the bedside commode with assistance yesterday. Otherwise, has only stood up by his bed with PT. Endorses feeling like he has fluid on his lungs saying it is difficult for home to catch his breath at times. - Objective MAR Reviewed: Yes Vital Signs & Weight: Vital Signs (12 hours) Temp Pulse Resp BP Pulse Ox 11/09/18 05:47 97.9 F 77 16 189/107 H 95 11/08/18 20:40 95 11/08/18 20:00 98.9 F 66 20 128/75 95 Weight Weight 180.161 kg I&O: 11/07/18 11/08/18 11/09/18 06:59 06:59 06:59 Intake Total 221 272 3704 Output Total 550 425 500 Balance 150 295 640 Result Diagrams: 11/07/18 07:38 11/08/18 06:45 Phys Exam - Physical Examination Constitutional: NAD HEENT: PERRLA Neck: supple, full ROM Respiratory: no wheezing, no rales, no rhonchi, clear to auscultation bilateral no respiratory distress Cardiovascular: RRR, no significant murmur Gastrointestinal: soft, positive bowel sounds obese abdomen Musculoskeletal: edema present trace pitting edema in B/L ankles Neurological: non-focal, moves all 4 limbs 5/5 strength throughout Psychiatric: normal affect, A&O x 3 Skin: no rash Dx/Plan (1) CVA (cerebral vascular accident) Code(s): I63.9 - CEREBRAL INFARCTION, UNSPECIFIED Status: Acute Qualifiers: Laterality of affected vessel: right (2) Malignant hypertension Code(s): I10 - ESSENTIAL (PRIMARY) HYPERTENSION Status: Active (3) DMII (diabetes mellitus, type 2) Status: Chronic Qualifiers: Diabetes mellitus retirement insulin use: with letterer use Diabetes mellitus complication detail: with diabetic retinopathy (4) Dyslipidemia Code(s): E78.5 - HYPERLIPIDEMIA, UNSPECIFIED Status: Chronic (5) Morbid obesity Code(s): E66.01 - MORBID (SEVERE) OBESITY DUE TO EXCESS CALORIES Status: Chronic (6) (HFpEF) heart failure with preserved ejection fraction Code(s): I50.30 - UNSPECIFIED DIASTOLIC (CONGESTIVE) HEART FAILURE Status: Chronic - Plan Plan: 38yo morbidly obses AAM with hx of multiple previous CVAs presents with an acute ischemic CVA. Acute ischemic CVA - CT: subacute to chronic R posterior lacunar infact w/ acute R lacunar infarct involving thalamus - Stroke team consulted in ED. Outside window for TPA, symptoms improved slightly s/p 325mg ASA - Consulted Neurology, appreciate recs. Will continue 325 ASA & statin. NPO today and will consult cardiology for LIANG per neurology recs. - Will continue to monitor BPs closely. See tx plan below. - CTA: stable areas of multifocal occlusion involving a diminutive-appearing right vertebral artery; reconstitution of right vertebral artery at level of C1. No significant stenosis of internal carotids, common carotids, or left vertebral artery. TTE: 1/3 diastolic dysfunction, EF not seen well, mildly dilated LA. Unable to perform MRI 2/2 body habitus. - CM consulted for DC planning: HH vs SNF. Rehab screen placed yesterday. HTN - Will continue Amlodipine & consider increasing Lisinopril/HCTZ to BID pending renal function since patient is still having significantly elevated BPs throughout the day up to the 170s systolic. PHONG vs. CKDIII - Initial GFR 59, likely pts baseline. Likely 2/2 uncontrolled HTN. However, eGFR yesterday down to 34. s/p 1 bag of LR @ 100mL/hr. - Repeat BMP pending for this AM. Will continue to monitor renal function closely. DMII - A1c 14.1% on admission. - SSI and hypoglycemic protocol. - ACHS accuchecks, HH/CC diet - Patient started on 40U lantus QAM & 10 QHS. Required an additional 6 units of SSI yesterday. Will adjust long-acting insulin accordingly PRN. HFpEF - Echo 2016: EF 50-55%. - Echo 11/06: LV not well seen, 1/3 diastolic dysfunction, mildly dilated LA. Will refer to CHF clinic upon discharge. Will consult cards for possible LIANG today to complete work up per neuro recs. - Will continue strict I&Os, daily wts, fluid restriction, HH/CC diet h/o multiple CVAs - Continue ASA and Statin. HLD - Continue statin. PEGGY - likely due to body habitus - CTA showed prominent palatine tonsils with prominent narrowing of oropharynx. May need ENT referral outpatient. Sleep study outpatient. Morbid obesity - Aware, will sexual abuse counsellor on need for lifestyle changes and weight loss. Hypokalemia - resolved - Will continue to monitor w/ QD BMPs. DISPO: Possible LIANG today. DC pending dc placement/planning. Awaiting rehab acceptance.
[2018-11-09] MEDS: Artificial Tear Sol 15 ML BOT EA EYE PRN ×2 (11:10→19:53)
[2018-11-09] MEDS: Insulin Glargine 56 UNITS in Pre-Filled Syringe 1 EACH SC SCH (11:10)
[2018-11-09] MEDS: Aspirin 325 mg Enteric Coated Tablet PO SCH (11:12)
[2018-11-09] MEDS: Amlodipine 10 MG TAB PO SCH (11:12)
[2018-11-09] MEDS: Clopidogrel Bisulfate 75 MG TAB PO SCH (11:13)
[2018-11-09] MEDS: Enoxaparin Sodium 60 MG/0.6 ML SYRINGE SC SCH (11:19)
[2018-11-09] MEDS ORDERED: Lisinopril/Hydrochlorothiazide 20/25 mg Tablet PO SCH (11:30)
[2018-11-09 11:50] LABS: Anion Gap 21 mmol/L (10-20); BUN (Urea Nitrogen) 20 mg/dL (8.9-20.6); Calc. Creatinine Clearance 89 mL/min (70-130); Calcium 9.4 mg/dL (7.8-10.44); Carbon Dioxide 19 mmol/L (22-29); Chloride 103 mmol/L (98-107); Estimated GFR-MDRD 30; Glucose 132 mg/dL (70-105); Potassium 4.5 mmol/L (3.5-5.1); Sodium 138 mmol/L (136-145)
[2018-11-09] MEDS: Lisinopril/Hydrochlorothiazide 20 mg/12.5 mg Tablet PO SCH (12:03)
[2018-11-09] MEDS: Insulin Glargine 40 UNITS in Pre-Filled Syringe 1 EACH SC SCH (12:03)
[2018-11-09] MEDS ORDERED: Labetalol HCl 100 MG/20 ML VIAL SLOW IVP PRN (13:15)
--- NOTE | 2018-11-09 14:15 | CON ---
DATE OF CONSULTATION: PRIMARY CARE DOCTOR: Kuldip Valle MD PRIMARY HANDHOLE MACHINE OPERATOR: Candida Coughlin MD REASON FOR CARDIOLOGY CONSULT: LIANG for CVA workup per Neurology recommendation. HISTORY OF PRESENT ILLNESS: Mr. Cabrera is a 38 years old male with a significant history of multiple previous CVA, hypertension, diabetes, hyperlipidemia, and congestive heart failure. He presents to the emergency department yesterday with left-sided weakness. The patient was found to have acute-appearing lacunar infarction involving the right thalamus. However, the patient could not receive the tPA due to out of the window at that time. The patient denies any chest pain, heaviness, tightness, palpitation, fluttering, dizziness, lightheadedness, shortness of breath, nausea or vomiting prior to this event. The patient's CT neck showed no significant stenosis. The cardiology consult was requested for a possible LIANG for CVA workup per Neurology recommendation. The patient had echocardiogram was done on November 06, which shows grade 1 diastolic dysfunction, mild dilated left atrium, mild tricuspid regurgitation. Unable to major left ventricular function at this moment. The patient had a stress test done in 2011, which shows no myocardial ischemia or scar. The patient had an echocardiogram done in 2011, which shows an EF 40% to 45% last ejection fraction was found to be 20% to 25% in 2013. He has been on metformin, insulin, but he has not taking any PROSPER inhibitor, Lasix, or any other medicine for over a month. PAST MEDICAL HISTORY: 1. Nonischemic cardiomyopathy. 2. Morbid obesity. 3. Hyperlipidemia. 4. Hypertension. 5. Insulin-dependent diabetes. 6. Previous CVA. 7. Eye blindness secondary to diabetic retinopathy. PAST SURGICAL HISTORY: 1. Bilateral cataract surgery. 2. Appendectomy. 3. Left knee surgery. 4. He had status post I and D of the right groin and thigh. FAMILY HISTORY: The patient's father has a history of coronary artery disease with stent placement and diabetes. The patient's mother has a history of hypertension, congestive heart failure, and AICD placement. The patient's brother has a gout and congestive heart failure. SOCIAL HISTORY: The patient lives with mother and brother. However, he is taking care of his medicine himself. He is an ex-smoker and quit in 2002, but he is smoking with the smokeless tobacco with nicotine since 2002. He enjoy 2 glass of whiskey once a month. He denies illicit drug abuse. He drinks at least [address] Pepper and 2 cups of coffee a day. He uses a walker at home to transfer from bed to go to the bathroom. ALLERGIES: NO KNOWN DRUG ALLERGIES. HOME MEDICATIONS: 1. Metformin. 2. Insulin. REVIEW OF SYSTEMS: Twelve-point review of systems negative unless otherwise mentioned in the HPI. PHYSICAL EXAMINATION: VITAL SIGNS: Blood pressure 165/105; pulse is 75, sinus rhythm; temperature 98.2; respiratory rate 20; and O2 sat 98% on room air. GENERAL: The patient is alert and oriented x4, not in acute distress. HEENT: Head; normocephalic, atraumatic. Eyes; extraocular muscle movements are intact. ENT and mouth; oral and nasal mucosa are moist without lesion. NECK: Supple. No JVD. Normal range of motion. RESPIRATORY: Clear to auscultate bilaterally, but diminished at the bases. CARDIOVASCULAR: Regular rate and rhythm. Normal S1 and S2. There are no S3 or S4. No significant murmur or hives are noted. 2+ pulses in bilateral lower extremities. No edema. Carotid pulses are present without bruit or thrill. ABDOMEN: Soft, nontender. No mass to palpitate. Bowel sounds are present. SKIN: Warm and dry. No discoloration, rash, erythema, or lesions noticed. MUSCULOSKELETAL: The patient able to move all extremities as the patient denied claudication. NEUROLOGIC: The patient is alert and oriented x4. Nonfocal. PSYCHIATRIC: The patient's mood is appropriate. LABORATORY DATA: WBC 9.4, hemoglobin 12.8, hematocrit of 41.9, and platelet of 343. PT is 13.6, INR 1.0, and APTT 21.3. Sodium of 137, potassium 3.7, BUN 18, and creatinine 2.59. Hemoglobin A1c is 14.1. AST 14, ALT 10. Cholesterol 321, triglyceride 199, HDL 35, and LDL 246. ASSESSMENT AND PLAN: 1. Cerebrovascular accident. The patient is going to have a LIANG by Dr. Coughlin' Neurology recommendation. The patient is n.p.o. at this moment. He is on aspirin, Plavix, and Lovenox at this moment. 2. Hypertension urgency. The patient's blood pressure is still elevated with amiodarone 10 mg once a day. Lisinopril/hydrochlorothiazide 20/25 mg once a day. We would like to start the carvedilol 6.25 mg twice a day from today. 3. Acute on chronic heart failure. The patient's ejection fraction . The patient's echocardiogram on this admission shows grade 1 diastolic dysfunction. The patient is doing well with room air at this moment. The patient is on lisinopril, carvedilol, and hydrochlorothiazide. We would like to adjust the patient's diuretic medication as appropriate. 4. Hyperlipidemia. The patient's cholesterol is elevated and the patient is on Lipitor 80 mg once a day. The patient's cholesterol is still uncontrolled. We may consider Repatha or Praluent for this patient. 5. Insulin-dependent diabetes, which is managed by primary care doctor. 6. Acute kidney insufficiency on chronic kidney disease, stage 3. The patient's renal function today is elevated today. We would like to continue to monitor. Thank you very much for allowing the Cardiology Service to participate in the care of this patient. We will follow along the patient's care team and make further recommendations as appropriate. Job ID: [id number]
[2018-11-09] MEDS: Carvedilol 6.25 MG TAB PO SCH (16:16)
[2018-11-09] MEDS: HumaLOG 300 UNITS/3 ML VIAL SC PRN (17:10)
[2018-11-09] MEDS: Atorvastatin Calcium 40 MG TAB PO SCH (19:52)
[2018-11-10 06:03] LABS: Chloride 104 mmol/L (98-107); Potassium 3.7 mmol/L (3.5-5.1); Sodium 136 mmol/L (136-145)
[2018-11-10 06:04] LABS: Calcium 8.4 mg/dL (7.8-10.44); Glucose 135 mg/dL (70-105)
[2018-11-10 06:06] LABS: Anion Gap 12 mmol/L (10-20); Carbon Dioxide 24 mmol/L (22-29)
[2018-11-10 06:08] LABS: BUN (Urea Nitrogen) 22 mg/dL (8.9-20.6); Calc. Creatinine Clearance 102 mL/min (70-130); Estimated GFR-MDRD 34
--- NOTE | 2018-11-10 06:34 | PDOC.FM ---
- Subjective Subjective: Patient denies any headache, blurry vision, chest pain, or SOB. Says he feels like he is wheezing but is satting well on RA w/ no obvious wheezing on exam. - Objective MAR Reviewed: Yes Vital Signs & Weight: Vital Signs (12 hours) Temp Pulse Resp BP Pulse Ox 11/10/18 04:00 97.9 F 66 19 139/86 98 11/10/18 00:00 97.9 F 64 19 130/86 96 11/09/18 20:00 98.6 F 71 20 167/100 H 96 Weight Weight 182.253 kg I&O: 11/08/18 11/09/18 11/10/18 06:59 06:59 06:59 Intake Total 720 1380 250 Output Total 733 792 9709 Balance 295 580 -1350 Result Diagrams: 11/07/18 07:38 11/10/18 05:09 Phys Exam - Physical Examination Constitutional: NAD HEENT: PERRLA, moist MMs Neck: supple, full ROM Respiratory: no wheezing, no rales, no rhonchi, clear to auscultation bilateral Cardiovascular: RRR, no significant murmur Gastrointestinal: positive bowel sounds Musculoskeletal: edema present Neurological: non-focal, moves all 4 limbs 5/5 strength throughout Psychiatric: normal affect, A&O x 3 Skin: no rash, normal turgor Dx/Plan (1) CVA (cerebral vascular accident) Code(s): I63.9 - CEREBRAL INFARCTION, UNSPECIFIED Status: Acute Qualifiers: Laterality of affected vessel: right (2) Malignant hypertension Code(s): I10 - ESSENTIAL (PRIMARY) HYPERTENSION Status: Active (3) DMII (diabetes mellitus, type 2) Status: Chronic Qualifiers: Diabetes mellitus correction insulin use: with long term care phlebotomist use Diabetes mellitus complication detail: with diabetic retinopathy (4) Dyslipidemia Code(s): E78.5 - HYPERLIPIDEMIA, UNSPECIFIED Status: Chronic (5) Morbid obesity Code(s): E66.01 - MORBID (SEVERE) OBESITY DUE TO EXCESS CALORIES Status: Chronic (6) (HFpEF) heart failure with preserved ejection fraction Code(s): I50.30 - UNSPECIFIED DIASTOLIC (CONGESTIVE) HEART FAILURE Status: Chronic - Plan Plan: 38yo morbidly obese AAM with hx of multiple previous CVAs presents with an acute ischemic CVA. Acute ischemic CVA - CT: subacute to chronic R posterior lacunar infact w/ acute R lacunar infarct involving thalamus - CTA: stable areas of multifocal occlusion involving a diminutive-appearing right vertebral artery; reconstitution of right vertebral artery at level of C1. No significant stenosis of internal carotids, common carotids, or left vertebral artery. TTE: 1/3 diastolic dysfunction, EF not seen well, mildly dilated LA. Unable to perform MRI 2/2 body habitus. - Stroke team consulted in ED. Outside window for TPA, symptoms improved slightly s/p 325mg ASA but have significantly improved over course of hospital stay. - Consulted Neurology, appreciate recs. Will continue 325 ASA, statin & plavix. - NPO today for LIANG with Dr. Coughlin this AM per neurology recs. - Will continue to monitor BPs closely. See tx plan below. - CM consulted for DC planning: Referral to [facility] rehab placed yesterday w/ backup plan in place as well to go to [facility]. - Will also consider a thrombophilia workup as an outpatient due to h/o multiple CVAs and young age. HTN - Will continue Amlodipine, Lisinopril/HCTZ BID & coreg 6.25 BID per cards recs. Will consider adding a 4th agent or increasing coreg today for improved BP control. PHONG vs. CKDIII - Initial GFR 59, likely pts baseline. Likely 2/2 uncontrolled HTN. eGFR slightly improved today at 34. Likely 2/2 improved BP control. - Will continue to monitor renal function closely. DMII - A1c 14.1% on admission. - SSI and hypoglycemic protocol. - ACHS accuchecks, HH/CC diet - Will continue 56 lantus HS that was given overnight and adjust tonight's dose PRN. HFpEF - Echo 2016: EF 50-55%. - Echo 11/06: LV not well seen, 1/3 diastolic dysfunction, mildly dilated LA. Will refer to CHF clinic upon discharge. - Will continue strict I&Os, daily wts, fluid restriction, HH/CC diet. h/o multiple CVAs - Continue ASA, plavix, and statin. HLD - Continue statin. PEGGY - likely due to body habitus - CTA showed prominent palatine tonsils with prominent narrowing of oropharynx. May need ENT referral outpatient. Sleep study outpatient. Morbid obesity - Aware, will breastfeeding peer counselor on need for lifestyle changes and weight loss. Hypokalemia - resolved - Will continue to monitor w/ QD BMPs. DISPO: LIANG today. DC pending placement. Awaiting rehab acceptance.
--- NOTE | 2018-11-10 08:37 | CON ---
DATE OF CONSULTATION: ADDENDUM: INDICATION FOR CONSULTATION: This is a 38-year-old patient with history of multiple CVAs, whom we were asked to see for possible LIANG to evaluate for possible etiologies of his multiple CVAs in the past. The transthoracic echocardiogram was somewhat difficult to study due to morbid obesity of the patient. We will accommodate this evaluation with this patient by doing a transesophageal echocardiogram. I have explained that to the patient already. Please refer to the notes by my nurse practitioner for history of present illness, past medical history, social history, family history, review of systems, medications, allergies, and physical examination. I would agree with this fully. At this time, I have spoke to the patient, explained to him that he will need to undergo further evaluation by the transesophageal echocardiogram. I explained the procedure to him with hope that we will be able to do this tomorrow morning. Otherwise, the patient remained stable. His chest was clear. Cardiovascular exam reveals regular rate and rhythm at this time. Neurologically, he has stroke as noted above. He does have some mild edema with morbid obesity. Please refer further to the dictations for assessment and plan of this patient by my nurse practitioner. We will be more than happy to continue to follow the patient with you. Job ID: [id number] MTDD
--- NOTE | 2018-11-10 08:49 | PRG ---
DATE OF SERVICE: 11/09/2018 ADDENDUM: This is an addendum to the note of Dr. Kirsten Tavarez. Mr. Cabrera is an unfortunate 38-year-old black male patient, morbidly obese with previous history of stroke. He presented to our hospital with stroke-like symptoms that had been ongoing for several days, and therefore, he was not a candidate for tPA. He has had CT scan showing subacute to chronic appearing right posterior globus pallidus lacunar infarction. There is also an acute appearing lacunar infarction involving the right thalamus. He is unfortunately too large for our MRI machine. We are managing him conservatively with aspirin, statins, and blood pressure control as well as control of his other risk factors. We will continue to follow with the Stroke Team. Given his rather young age, despite the fact he has multiple risk factors, I would consider doing a thrombophilia workup. Job ID: [id number]
[2018-11-10] MEDS ORDERED: Ketamine 50 MG/ML (10ML VIAL) ONE (09:03)
[2018-11-10] MEDS ORDERED: Midazolam HCl 2 mg/2 ml Vial ONE (09:04)
[2018-11-10] MEDS ORDERED: PROPOFOL 0 ML ONE (09:06)
[2018-11-10] MEDS ORDERED: hydrALAZINE 20 MG/ML VIAL ONE (09:38)
--- NOTE | 2018-11-10 09:50 | PDOC.CTH ---
Cardiology Progress Note - Subjective No new overnight event.No cardiac complaints. - Objective Vital Signs Temp Pulse Resp BP Pulse Ox 11/10/18 08:00 98.4 F 62 20 165/101 H 94 L 11/10/18 04:00 97.9 F 66 19 139/86 98 11/10/18 00:00 97.9 F 64 19 130/86 96 Weight 401 lb 12.8 oz 11/09/18 11/10/18 11/11/18 06:59 06:59 06:59 Intake Total 1380 250 Output Total 800 1600 Balance 580 -1350 - Physical Examination General/Neuro: alert & oriented x3 Neck: no JVD present Lungs: CTA Heart: RRR Abdomen: other: (morbidly obese) - Labs Result Diagrams: 11/07/18 07:38 11/10/18 05:09 - Assessment/Plan 1. S/P CVA.. multiple CVA's. LIANG this AM without evidence of PFO,ASD or intracardiac etiology for CVA. 2. HTN 3. DM The cardiac status is stable. I will sign off. if any cardiac issues please consult again. thank you.
[2018-11-10] MEDS ORDERED: Promethazine HCl 25 MG/ML VIAL ONE (09:51)
[2018-11-10] MEDS ORDERED: Promethazine HCl 25 MG/ML VIAL IM PRN (09:53)
[2018-11-10] MEDS ORDERED: Promethazine HCl 25 MG/ML VIAL SLOW IVP PRN (09:53)
--- NOTE | 2018-11-10 11:35 | PRG ---
DATE OF SERVICE: 11/10/2018 Mr. Cabrera is not offering any new complaints today. He is to undergo a TTE today. His vital signs are stable except for slight elevation of blood pressure. It had been 140/86, which is now 160/100. He is asymptomatic. Pulse rate is 62 and regular. Job ID: [id number]
[2018-11-10] MEDS: Carvedilol 6.25 MG TAB PO SCH ×2 (11:40→17:34)
[2018-11-10] MEDS: Clopidogrel Bisulfate 75 MG TAB PO SCH (12:31)
[2018-11-10] MEDS: Lisinopril/Hydrochlorothiazide 20/25 mg Tablet PO SCH (12:31)
[2018-11-10] MEDS: Aspirin 325 mg Enteric Coated Tablet PO SCH (12:31)
[2018-11-10] MEDS: Enoxaparin Sodium 60 MG/0.6 ML SYRINGE SC SCH (12:32)
[2018-11-10] MEDS: Amlodipine 10 MG TAB PO SCH (12:32)
[2018-11-10] MEDS ORDERED: Esmolol 100 MG/10 ML VIAL ONE (15:27)
[2018-11-10] MEDS: HumaLOG 300 UNITS/3 ML VIAL SC PRN (17:34)
[2018-11-10] MEDS ORDERED: Atorvastatin Calcium 20 MG TAB PO SCH (21:15)
[2018-11-10] MEDS: Atorvastatin Calcium 20 MG TAB PO SCH (23:04)
[2018-11-10] MEDS: Insulin Glargine 56 UNITS in Pre-Filled Syringe 1 EACH SC SCH (23:04)
[2018-11-10] MEDS: Atorvastatin Calcium 40 MG TAB PO SCH (23:28)
--- NOTE | 2018-11-11 05:38 | PDOC.FM ---
- Subjective Subjective: Patient reports improvement in weakness. Denies any headache, blurry vision, chest pain, or SOB. - Objective MAR Reviewed: Yes Vital Signs & Weight: Vital Signs (12 hours) Temp Pulse Resp BP Pulse Ox 11/11/18 03:58 97.5 F L 68 19 137/78 95 11/11/18 00:00 97.6 F 74 19 136/90 94 L 11/10/18 21:20 92 L 11/10/18 20:00 98.2 F 83 19 132/84 92 L Weight Weight 182.253 kg I&O: 11/09/18 11/10/18 11/11/18 06:59 06:59 06:59 Intake Total 1380 250 Output Total 800 1600 1025 Balance 680 -6754 -1025 Result Diagrams: 11/07/18 07:38 11/11/18 05:13 Phys Exam - Physical Examination Constitutional: NAD HEENT: moist MMs Neck: supple, full ROM Respiratory: no wheezing, no rales, no rhonchi, clear to auscultation bilateral Cardiovascular: RRR, no significant murmur Gastrointestinal: positive bowel sounds Musculoskeletal: no edema Neurological: non-focal, moves all 4 limbs Psychiatric: normal affect, A&O x 3 Skin: no rash, normal turgor Dx/Plan (1) CVA (cerebral vascular accident) Code(s): I63.9 - CEREBRAL INFARCTION, UNSPECIFIED Status: Acute Qualifiers: Laterality of affected vessel: right (2) Malignant hypertension Code(s): I10 - ESSENTIAL (PRIMARY) HYPERTENSION Status: Active (3) DMII (diabetes mellitus, type 2) Status: Chronic Qualifiers: Diabetes mellitus manager long term care insulin use: with manager long term care use Diabetes mellitus complication detail: with diabetic retinopathy (4) Dyslipidemia Code(s): E78.5 - HYPERLIPIDEMIA, UNSPECIFIED Status: Chronic (5) Morbid obesity Code(s): E66.01 - MORBID (SEVERE) OBESITY DUE TO EXCESS CALORIES Status: Chronic (6) (HFpEF) heart failure with preserved ejection fraction Code(s): I50.30 - UNSPECIFIED DIASTOLIC (CONGESTIVE) HEART FAILURE Status: Chronic - Plan Plan: 38yo morbidly obese AAM with hx of multiple previous CVAs presents with an acute ischemic CVA. Acute ischemic CVA - CT: subacute to chronic R posterior lacunar infact w/ acute R lacunar infarct involving thalamus - CTA: stable areas of multifocal occlusion involving a diminutive-appearing right vertebral artery; reconstitution of right vertebral artery at level of C1. No significant stenosis of internal carotids, common carotids, or left vertebral artery. TTE: 1/3 diastolic dysfunction, EF not seen well, mildly dilated LA. Unable to perform MRI 2/2 body habitus. - Stroke team on board. Outside window for TPA on admission, symptoms improved slightly s/p 325mg ASA but have significantly improved over course of hospital stay. - Consulted Neurology, appreciate recs. Will continue 325 ASA, statin & plavix. - LIANG with Dr. Coughlin yesterday negative for ASD or PFO or any cardiac source for CVA. Cards has signed off. - Will continue to monitor BPs closely. See tx plan below. - CM consulted for DC planning: Referral to [facility] rehab placed on Friday w/ backup plan in place as well to go to [facility]. - Will also consider a thrombophilia workup as an outpatient due to h/o multiple CVAs and young age. HTN - Will continue Amlodipine, Lisinopril/HCTZ BID & coreg BID. Will consider increasing coreg today for improved BP control as still not at goal. PHONG vs. CKDIII - Initial GFR 59, likely pts baseline. Likely 2/2 uncontrolled HTN. eGFR continues to improve slowly each day. - Will continue to monitor renal function closely. DMII - A1c 14.1% on admission. - SSI and hypoglycemic protocol. - ACHS accuchecks, HH/CC diet - Will continue 56 lantus HS. HFpEF - Echo 2016: EF 50-55%. - Echo 11/06: LV not well seen, 1/3 diastolic dysfunction, mildly dilated LA. Will refer to CHF clinic upon discharge. - Will continue strict I&Os, daily wts, fluid restriction, HH/CC diet. h/o multiple CVAs - Continue ASA, plavix, and statin. HLD - Continue statin. PEGGY - likely due to body habitus - CTA showed prominent palatine tonsils with prominent narrowing of oropharynx. May need ENT referral outpatient. Sleep study outpatient. Morbid obesity - Aware, will employment counselor on need for lifestyle changes and weight loss. Hypokalemia - resolved - Will continue to monitor w/ QD BMPs. DISPO: DC pending placement. Awaiting rehab acceptance.
[2018-11-11 05:58] LABS: Anion Gap 12 mmol/L (10-20); BUN (Urea Nitrogen) 22 mg/dL (8.9-20.6); Calc. Creatinine Clearance 112 mL/min (70-130); Calcium 8.4 mg/dL (7.8-10.44); Carbon Dioxide 23 mmol/L (22-29); Chloride 107 mmol/L (98-107); Estimated GFR-MDRD 38; Glucose 112 mg/dL (70-105); Potassium 3.8 mmol/L (3.5-5.1); Sodium 138 mmol/L (136-145)
[2018-11-11] MEDS: HumaLOG 300 UNITS/3 ML VIAL SC PRN (06:28)
[2018-11-11] MEDS: Carvedilol 6.25 MG TAB PO SCH ×2 (09:55→17:43)
[2018-11-11] MEDS: Enoxaparin Sodium 60 MG/0.6 ML SYRINGE SC SCH (09:55)
[2018-11-11] MEDS: Lisinopril/Hydrochlorothiazide 20/25 mg Tablet PO SCH (09:56)
[2018-11-11] MEDS: Aspirin 325 mg Enteric Coated Tablet PO SCH (09:56)
[2018-11-11] MEDS: Clopidogrel Bisulfate 75 MG TAB PO SCH (09:57)
[2018-11-11] MEDS: Amlodipine 10 MG TAB PO SCH (09:57)
--- NOTE | 2018-11-11 12:39 | PRG ---
DATE OF SERVICE: 11/11/2018 Zheng is sitting quietly in bed, in no distress. His CT does not show any significant valvular disease. We are awaiting placement. No new complaints. Job ID: [id number]
[2018-11-11] MEDS: Atorvastatin Calcium 20 MG TAB PO SCH (21:03)
[2018-11-11] MEDS: Insulin Glargine 56 UNITS in Pre-Filled Syringe 1 EACH SC SCH (21:03)
--- NOTE | 2018-11-11 21:07 | ECHO ---
38-year-old patient with multiple CVAs in the past. Had echocardiogram which was somewhat difficult t o interpret. Difficult study to rule out evidence of intracardiac thrombi, masses, PFO or PFO ASD and he was advised to undergo the transesophageal echocardiogram to search for any etiology or source fo r his CVAs. He was taken to the recovery area where he underwent short acting Propofol. The transesophageal probe was easily passed down the distal esophagus. The impressions are as follows 1. Ejection fraction 50-55%. 2. Mild mitral valve regurgitation. 3. Mild tricuspid valve regurgitation. 4. Trace aortic mitral valve regurgitation. 5. Normal valvular structures in appearance. 6. No evidence of left atrial or left atrial appendage thrombus. 7. No evidence of patent foramen ovale or atrioseptal defect. The patient was then using agitated saline was injected into the right system. This showed opacificat ion of the right atrium and right ventricle, but there was no crossover to the left ventricle with th e bubbles. No indication the patient has a PFO or ASD. The left atrium also was not enlarged, less th an 4 cm in diameter. There were no difficulties or complications encountered during the procedure.
--- NOTE | 2018-11-12 05:42 | PDOC.FM ---
- Subjective Subjective: Patient states he feels well this AM. Denies any headache, blurry vision, chest pain, or SOB. - Objective MAR Reviewed: Yes Vital Signs & Weight: Vital Signs (12 hours) Temp Pulse Resp BP BP Pulse Ox 11/12/18 04:00 97.7 F 61 16 129/90 94 L 11/12/18 00:00 97.5 F L 67 16 114/93 H 98 11/11/18 20:45 94 L 11/11/18 20:00 97.8 F 65 16 136/100 H 95 11/11/18 17:43 143/96 H Weight Weight 179.169 kg I&O: 11/10/18 11/11/18 11/12/18 06:59 06:59 06:59 Intake Total 250 480 480 Output Total 1600 1025 850 Balance -1350 -545 -370 Result Diagrams: 11/07/18 07:38 11/11/18 05:13 Phys Exam - Physical Examination Constitutional: NAD HEENT: moist MMs Neck: supple, full ROM Respiratory: no wheezing, no rales, no rhonchi, clear to auscultation bilateral Cardiovascular: RRR, no significant murmur Gastrointestinal: positive bowel sounds Musculoskeletal: no edema Neurological: non-focal, moves all 4 limbs Psychiatric: normal affect, A&O x 3 Skin: no rash, normal turgor Dx/Plan (1) CVA (cerebral vascular accident) Code(s): I63.9 - CEREBRAL INFARCTION, UNSPECIFIED Status: Acute Qualifiers: Laterality of affected vessel: right (2) Malignant hypertension Code(s): I10 - ESSENTIAL (PRIMARY) HYPERTENSION Status: Active (3) DMII (diabetes mellitus, type 2) Status: Chronic Qualifiers: Diabetes mellitus terminal gauger supervisor insulin use: with fdc use Diabetes mellitus complication detail: with diabetic retinopathy (4) Dyslipidemia Code(s): E78.5 - HYPERLIPIDEMIA, UNSPECIFIED Status: Chronic (5) Morbid obesity Code(s): E66.01 - MORBID (SEVERE) OBESITY DUE TO EXCESS CALORIES Status: Chronic (6) (HFpEF) heart failure with preserved ejection fraction Code(s): I50.30 - UNSPECIFIED DIASTOLIC (CONGESTIVE) HEART FAILURE Status: Chronic - Plan Plan: 38yo morbidly obese AAM with hx of multiple previous CVAs presents with an acute ischemic CVA. Acute ischemic CVA - CT: subacute to chronic R posterior lacunar infact w/ acute R lacunar infarct involving thalamus - CTA: stable areas of multifocal occlusion involving a diminutive-appearing right vertebral artery; reconstitution of right vertebral artery at level of C1. No significant stenosis of internal carotids, common carotids, or left vertebral artery. TTE: 1/3 diastolic dysfunction, EF not seen well, mildly dilated LA. Unable to perform MRI 10/17 body habitus. - Stroke team on board. Outside window for TPA on admission, symptoms improved slightly s/p 325mg ASA but have significantly improved over course of hospital stay. - Consulted Neurology, appreciate recs. Will continue 325 ASA, statin & plavix. - LIANG with Dr. Coughlin on 11/10 negative for ASD or PFO or any cardiac source for CVA. Cards has signed off. - Will continue to monitor BPs closely. See tx plan below. - CM consulted for DC planning: Referral to [facility] rehab placed on Friday. Patient accepted pending insurance approval. Will otherwise go to [facility] upon d/c for PT. - Will also consider a thrombophilia workup as an outpatient due to h/o multiple CVAs and young age. HTN - Will continue Amlodipine, Lisinopril/HCTZ BID & coreg BID. Max BP yesterday 170/103 @ 0955. HR consistently in 60s so may not tolerate increase in coreg. May have to wait for renal function to improve before increasing either lisinopril or HCTZ. PHONG vs. CKDIII - Initial GFR 59, likely pts baseline. Likely 2/2 uncontrolled HTN. eGFR continues to improve slowly each day. - Will continue to monitor renal function closely. DMII - A1c 14.1% on admission. - SSI and hypoglycemic protocol. - ACHS accuchecks, HH/CC diet - Will consider slightly increasing lantus HS to ~40U. Will start metformin once PHONG resolves. HFpEF - Echo 2015: EF 50-55%. - Echo 11/06: LV not well seen, 1/3 diastolic dysfunction, mildly dilated LA. Will refer to CHF clinic upon discharge. - Will continue strict I&Os, daily wts, fluid restriction, HH/CC diet. h/o multiple CVAs - Continue ASA, plavix, and statin. HLD - Continue statin. PEGGY - likely due to body habitus - CTA showed prominent palatine tonsils with prominent narrowing of oropharynx. May need ENT referral outpatient. Sleep study outpatient. Morbid obesity - Aware, will extension course counselor on need for lifestyle changes and weight loss. Hypokalemia - resolved - Will continue to monitor w/ QD BMPs. DISPO: DC pending placement. Awaiting insurance approval for rehab.
[2018-11-12 05:54] LABS: #Basophils 0.1 thou/uL (0.0-0.2); #Eosinphils 0.4 thou/uL (0.0-0.7); #Lymphocytes 2.1 thou/uL (1.20-3.40); %Basophils 1.2 % (0.0-1.0); %Eosinophils 4.5 % (0.0-10.0); %Lymphocytes 24.4 % (21.0-51.0); %Monocytes 11.5 % (0.0-10.0); %Neutrophils 58.4 % (42.0-75.0); Hemoglobin 11.8 g/dL (14.0-18.0); Mean Corpuscular HGB CONC 30.2 g/dL (32.0-36.0); Mean Corpuscular Hemoglobin 26.5 pg (27.0-31.0); Mean Corpuscular Volume 87.9 fL (78.0-98.0); Mean Platelet Volume 9.5 fL (7.4-10.4); Platelet Count 311 thou/uL (130-400); RBC Distribution Width 13.8 % (11.5-14.5); Red Blood Cell (RBC) Count 4.44 mill/uL (4.70-6.10); White Blood Cell (WBC) Count 8.5 thou/uL (4.8-10.8)
[2018-11-12 06:11] LABS: Anion Gap 12 mmol/L (10-20); BUN (Urea Nitrogen) 22 mg/dL (8.9-20.6); Calc. Creatinine Clearance 120 mL/min (70-130); Calcium 8.3 mg/dL (7.8-10.44); Carbon Dioxide 24 mmol/L (22-29); Chloride 106 mmol/L (98-107); Estimated GFR-MDRD 42; Glucose 119 mg/dL (70-105); Potassium 3.8 mmol/L (3.5-5.1); Sodium 138 mmol/L (136-145)
[2018-11-12] MEDS: Amlodipine 10 MG TAB PO SCH (09:24)
[2018-11-12] MEDS: Lisinopril/Hydrochlorothiazide 20/25 mg Tablet PO SCH (09:25)
[2018-11-12] MEDS: Carvedilol 6.25 MG TAB PO SCH ×2 (09:25→17:30)
[2018-11-12] MEDS: Clopidogrel Bisulfate 75 MG TAB PO SCH (09:26)
[2018-11-12] MEDS: Aspirin 325 mg Enteric Coated Tablet PO SCH (09:26)
[2018-11-12] MEDS: Enoxaparin Sodium 60 MG/0.6 ML SYRINGE SC SCH (09:34)
--- NOTE | 2018-11-12 12:26 | PRG ---
DATE OF SERVICE: 11/12/2018 Mr. Cabrera is offering no new complaints today. He is awake and alert, in no distress. His vital signs are stable and we are still awaiting placement. Job ID: [id number]
[2018-11-12] MEDS: HumaLOG 300 UNITS/3 ML VIAL SC PRN ×2 (12:47→17:30)
[2018-11-12] MEDS: Atorvastatin Calcium 20 MG TAB PO SCH (20:21)
[2018-11-12 20:37] VITALS: BP 117/90; TEMP 98.2
[2018-11-12] MEDS ORDERED: Insulin Glargine 50 UNITS in Pre-Filled Syringe SC SCH (21:00)
[2018-11-13] MEDS ORDERED: Insulin Glargine 10 UNITS in Pre-Filled Syringe SC SCH (09:00)
== END 2018-11-12 20:49 | DRG 65 ==
LOC: ERS 20:26 → 2SE 11-06 01:32
PROVIDERS: ADMIT Emergency Medicine; ATTEND Emergency Medicine
PROC: B246ZZ4 Ultrasonography of Right and Left Heart, Transesophageal (ICD-10-PCS; principal; 2018-11-10)
DX: I63.9 Cerebral infarction, unspecified (principal); Z68.43 Body mass index [BMI] 50.0-59.9, adult; G81.94 Hemiplegia, unspecified affecting left nondominant side; I13.0 Hypertensive heart and chronic kidney disease with heart failure and stage 1 through stage 4 chronic kidney disease, or unspecified chronic kidney disease; I42.9 Cardiomyopathy, unspecified; N17.9 Acute kidney failure, unspecified; I50.32 Chronic diastolic (congestive) heart failure; I08.3 Combined rheumatic disorders of mitral, aortic and tricuspid valves; E66.01 Morbid (severe) obesity due to excess calories; E78.5 Hyperlipidemia, unspecified; E11.319 Type 2 diabetes mellitus with unspecified diabetic retinopathy without macular edema; E87.6 Hypokalemia; E11.22 Type 2 diabetes mellitus with diabetic chronic kidney disease; N18.3 Chronic kidney disease, stage 3 (moderate); H54.40 Blindness, one eye, unspecified eye; I16.0 Hypertensive urgency; Z79.82 Long term (current) use of aspirin; Z79.4 Long term (current) use of insulin; Z86.73 Personal history of transient ischemic attack (TIA), and cerebral infarction without residual deficits; Z82.49 Family history of ischemic heart disease and other diseases of the circulatory system; Z83.3 Family history of diabetes mellitus
CPT/HCPCS: 36415; 36416; 70450; 70498; 80048; 80053; 80061; 83036; 83880; 85025; 85520; 85610; 85730; 90471; 90686; 90732; 93005; 93306; 93312; 96374; G0008; G0009; J0360; J1650; J1825; J2250; J2550; J2704; Q9967

== ENCOUNTER 2018-12-08 03:51 | Emergency (ER) | payer MEDICARE ==
[2018-12-08 04:20] LABS: #Eosinphils 0.3 thou/uL (0.0-0.7); #Lymphocytes 1.6 thou/uL (1.20-3.40); #Monocytes 0.8 thou/uL (0.11-0.59); #Neutrophils 6.5 thou/uL (1.40-6.50); %Basophils 0.4 % (0.0-1.0); %Eosinophils 3.2 % (0.0-10.0); %Lymphocytes 17.6 % (21.0-51.0); %Monocytes 8.9 % (0.0-10.0); %Neutrophils 69.8 % (42.0-75.0); Mean Corpuscular HGB CONC 31.5 g/dL (32.0-36.0); Mean Corpuscular Hemoglobin 26.5 pg (27.0-31.0); Mean Corpuscular Volume 84.3 fL (78.0-98.0); Mean Platelet Volume 9.4 fL (7.4-10.4); Platelet Count 321 thou/uL (130-400); RBC Distribution Width 14.1 % (11.5-14.5); Red Blood Cell (RBC) Count 4.17 mill/uL (4.70-6.10); White Blood Cell (WBC) Count 9.3 thou/uL (4.8-10.8)
[2018-12-08 04:39] LABS: ALT (SGPT) 16 U/L (8-55); AST (SGOT) 16 U/L (5-34); Albumin 3.1 g/dL (3.5-5.0); Alkaline Phosphatase 117 U/L (40-150); Anion Gap 13 mmol/L (10-20); BUN (Urea Nitrogen) 55 mg/dL (8.9-20.6); Bilirubin, Total 0.5 mg/dL (0.2-1.2); Calc. Creatinine Clearance 0 mL/min (70-130); Carbon Dioxide 21 mmol/L (22-29); Chloride 109 mmol/L (98-107); Estimated GFR-MDRD 41; Globulin 3.8 g/dL (2.4-3.5); Glucose 63 mg/dL (70-105); Potassium 4.5 mmol/L (3.5-5.1); Protein, Total 6.9 g/dL (6.0-8.3); Sodium 138 mmol/L (136-145)
[2018-12-08] MEDS ORDERED: Dextrose 50% Abboject 50 ML SYRINGE ONE (05:03)
[2018-12-08] MEDS ORDERED: Dexamethasone 10 MG/ML VIAL ONE (05:03)
== END 2018-12-08 06:46 | disposition home or self-care (01) ==
LOC: ERS 03:51
DX: E11.649 Type 2 diabetes mellitus with hypoglycemia without coma (principal); Z71.6 Tobacco abuse counseling; E78.5 Hyperlipidemia, unspecified; I11.0 Hypertensive heart disease with heart failure; I50.9 Heart failure, unspecified; Z86.73 Personal history of transient ischemic attack (TIA), and cerebral infarction without residual deficits; F17.220 Nicotine dependence, chewing tobacco, uncomplicated; Z79.899 Other long term (current) drug therapy; Z79.82 Long term (current) use of aspirin; Z79.4 Long term (current) use of insulin
CPT/HCPCS: 36416; 80053; 85025; 96361; 96374; 96375; 99406; J1100

== ENCOUNTER 2018-12-28 16:38 | Inpatient (IN) | payer MEDICARE ==
--- NOTE | 2018-12-28 17:11 | RAD ---
XR Foot Lt 3 View STANDARD HISTORY: Open wound to left great toe. Hit toe on shower. COMPARISON: None. FINDINGS: There are arthritic changes of the talonavicular joint and a pes planus deformity. There is soft tissue swelling on the dorsum of the foot. There is no evidence of fracture. There is some subtle lucency and slight indistinctness to the cortex of the tuft of the distal phalanx of the great toe this is probably either related to bony demineralization or possibly technique related. If there is suspicion for osteomyelitis of the distal phalanx then further evaluation with MRI may be he lpful. IMPRESSION: Slight indistinctness to the tuft of the distal phalanx of the great toe probably on the basis of bony demineralization if there is a high clinical index of suspicion for osteomyelitis, MRI may be helpful in further assessment. No definite fractures are identified.
[2018-12-28] MEDS ORDERED: Piperacillin/Tazobactam 3.375 GM VIAL ONE (17:45)
[2018-12-28 18:38] LABS: #Basophils 0.1 thou/uL (0.0-0.2); #Eosinphils 0.6 thou/uL (0.0-0.7); #Lymphocytes 2.2 thou/uL (1.20-3.40); #Monocytes 1.1 thou/uL (0.11-0.59); #Neutrophils 12.6 thou/uL (1.40-6.50); %Basophils 0.7 % (0.0-1.0); %Eosinophils 3.8 % (0.0-10.0); %Lymphocytes 13.4 % (21.0-51.0); %Monocytes 6.3 % (0.0-10.0); %Neutrophils 75.8 % (42.0-75.0); Hemoglobin 10.4 g/dL (14.0-18.0); Mean Corpuscular HGB CONC 30.4 g/dL (32.0-36.0); Mean Corpuscular Hemoglobin 26.2 pg (27.0-31.0); Mean Corpuscular Volume 86.3 fL (78.0-98.0); Mean Platelet Volume 8.6 fL (7.4-10.4); Platelet Count 399 thou/uL (130-400); RBC Distribution Width 14.1 % (11.5-14.5); Red Blood Cell (RBC) Count 3.95 mill/uL (4.70-6.10); White Blood Cell (WBC) Count 16.7 thou/uL (4.8-10.8)
[2018-12-28 18:45] LABS: Base Excess-Venous -3.6 mmol/L (-2.0 to 3.0); Bicarbonate (HCO3v) 19.8 mmol/L (22.0-28.0); CO2 Tension (PvCO2) 30.1 mmHg (40.0-50.0); Calcium, Ionized 1.02 mmol/L (See Comments:); Chloride 109 mmol/L (98-107); Hemoglobin - Calc 11.7 g/dL (14.0-18.0); O2 Tension (PvO2) 74.6 mmHg (35.0-45.0); Potassium 4.7 mmol/L (3.5-5.1); Sodium 139 mmol/L (138-145); T. Carbon Dioxide 20.7 mmol/L (22.0-28.0); pH (Venous) 7.426 (7.320-7.430); vO2 Saturation-calc 95.4 % (60.0-85.0)
[2018-12-28 19:00] LABS: ALT (SGPT) 12 U/L (8-55); AST (SGOT) 15 U/L (5-34); Albumin 3.5 g/dL (3.5-5.0); Alkaline Phosphatase 135 U/L (40-150); Anion Gap 19 mmol/L (10-20); BUN (Urea Nitrogen) 55 mg/dL (8.9-20.6); Bilirubin, Total 0.6 mg/dL (0.2-1.2); CRP (Inflammatory) 8.54 mg/dL (= or < 0.5); Calc. Creatinine Clearance 0 mL/min (70-130); Calcium 8.8 mg/dL (7.8-10.44); Carbon Dioxide 18 mmol/L (22-29); Chloride 106 mmol/L (98-107); Estimated GFR-MDRD 30; Globulin 3.6 g/dL (2.4-3.5); Glucose 167 mg/dL (70-105); Lipase 17 U/L (8-78); Potassium 5.2 mmol/L (3.5-5.1); Protein, Total 7.1 g/dL (6.0-8.3); Sodium 138 mmol/L (136-145)
[2018-12-28] MEDS ORDERED: Calcium Carbonate 500 MG ChewTAB PO PRN (22:20)
[2018-12-28 22:25] VITALS: BMI 57.6
[2018-12-29] MEDS ORDERED: Bisacodyl 5 MG TAB PO PRN (00:10)
[2018-12-29] MEDS ORDERED: Acetaminophen 325 MG TAB PO PRN (00:10)
[2018-12-29] MEDS ORDERED: Senokot S 8.6-50 MG TAB PO PRN (00:10)
[2018-12-29] MEDS ORDERED: Dextrose 5% in Water 1,000 ML IV PRN (00:11)
[2018-12-29] MEDS ORDERED: Dextrose 50% Abboject 50 ML SYRINGE SLOW IVP PRN (00:11)
[2018-12-29] MEDS ORDERED: Vancomycin HCl 1 GM in Premix Bag 1 BAG IVPB SCH (00:45)
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
[2018-12-29] MEDS ORDERED: Piperacillin/Tazobactam 3.375 GM in Sodium Chloride 0.9% 100 ML IVPB SCH (04:00)
[2018-12-29] MEDS: Piperacillin/Tazobactam 2.25 GM in Sodium Chloride 0.9% 100 ML IVPB SCH ×4 (05:39→23:06)
[2018-12-29] MEDS: HumaLOG 300 UNITS/3 ML VIAL SC PRN ×3 (05:48→17:11)
[2018-12-29] MEDS ORDERED: Piperacillin/Tazobactam 2.25 GM in Sodium Chloride 0.9% 100 ML IVPB SCH (06:00)
[2018-12-29 06:52] LABS: Anion Gap 16 mmol/L (10-20); BUN (Urea Nitrogen) 49 mg/dL (8.9-20.6); Calc. Creatinine Clearance 101 mL/min (70-130); Calcium 8.8 mg/dL (7.8-10.44); Carbon Dioxide 16 mmol/L (22-29); Chloride 110 mmol/L (98-107); Estimated GFR-MDRD 35; Glucose 172 mg/dL (70-105); Potassium 4.5 mmol/L (3.5-5.1); Sodium 137 mmol/L (136-145)
[2018-12-29 06:55] LABS: #Eosinphils 0.6 thou/uL (0.0-0.7); #Lymphocytes 1.9 thou/uL (1.20-3.40); %Basophils 0.3 % (0.0-1.0); %Eosinophils 4.2 % (0.0-10.0); %Monocytes 7.6 % (0.0-10.0); %Neutrophils 73.9 % (42.0-75.0); Hemoglobin 9.9 g/dL (14.0-18.0); Mean Corpuscular HGB CONC 29.7 g/dL (32.0-36.0); Mean Corpuscular Hemoglobin 26.1 pg (27.0-31.0); Mean Corpuscular Volume 87.7 fL (78.0-98.0); Mean Platelet Volume 8.6 fL (7.4-10.4); Platelet Count 390 thou/uL (130-400); RBC Distribution Width 14.1 % (11.5-14.5); White Blood Cell (WBC) Count 13.6 thou/uL (4.8-10.8)
[2018-12-29 07:38] LABS: MDiff Complete? YES; Platelet Morphology Comment Appears Adequate; Polychromasia SLIGHT = 2-3 cells (100X) (0-2/hpf)
[2018-12-29] MEDS: Aspirin 325 mg Enteric Coated Tablet PO SCH (08:04)
[2018-12-29] MEDS: Amlodipine 10 MG TAB PO SCH (08:04)
[2018-12-29] MEDS: Clopidogrel Bisulfate 75 MG TAB PO SCH (08:04)
[2018-12-29] MEDS: Carvedilol 25 MG TAB PO SCH ×2 (08:04→17:11)
[2018-12-29] MEDS ORDERED: Enoxaparin Sodium 40 MG/0.4 ML SYRINGE SC SCH (09:00)
[2018-12-29] MEDS: traMADol HCl 50 MG TAB PO PRN (11:19)
[2018-12-29] MEDS ORDERED: Acetaminophen 500 MG TAB PO PRN (13:49)
--- NOTE | 2018-12-29 14:29 | HP ---
HISTORY OF PRESENT ILLNESS: Zheng Cabrera Junior is a 38-year-old black male, morbidly obese, 5 foot 9 inches, 390 pounds, 57 BMI, has had previous strokes with poor mobility and leg weakness. He has been hospitalized because of a painful left great toe. He is an insulin-dependent diabetic, metabolic syndrome, morbid obesity. I have been asked to see him regarding osteomyelitis of the left great toe. He has had plain x-rays that demonstrate suspicious osteomyelitis. He has had MRI ordered, not yet performed. At the bedside, I debrided a plantar ulceration distal left great toe revealing underlying exposed phalanx. At this time, the patient currently is on vancomycin and Zosyn. There is no significant redness of the toe. The toe is not swollen. He does have some edema of the left foot, this maybe chronic. At this point, I would recommend amputation of the left great toe through the proximal phalanx with primary closure tomorrow after an n.p.o. status. I will cancel his MRI, would order postop tissue. He probably could be discharged home tomorrow on oral antibiotics and a postop shoe, weightbear as tolerated and follow up in my office. ALLERGIES: NONE. SOCIAL HISTORY: Tobacco, none. Alcohol, none. He does chew tobacco. The patient lives with his family. He lives in [place]. PAST SURGICAL HISTORY: Bilateral cataract surgery, appendectomy, left knee surgery. PAST MEDICAL HISTORY: Stroke 2016 and other strokes, hyperlipidemia, hypertension, insulin-dependent diabetes mellitus, obesity, morbid obesity, metabolic syndrome, diabetic retinopathy. HOME MEDICATIONS: Include, 1. Lasix. 2. Lisinopril. 3. Insulin 40 units a.m. 4. Coreg 25 b.i.d. 5. Metformin 1000 b.i.d. 6. Atorvastatin 20 mg daily. REVIEW OF SYSTEMS: Noncontributory. PHYSICAL EXAMINATION: VITAL SIGNS: Height 5 feet and 9 inches, weight 390 pounds, 57 BMI. HEAD, EYES, EARS, NOSE, AND THROAT: Unremarkable. LUNGS: Clear to auscultation. CARDIAC: Regular rate and rhythm. ABDOMEN: Obese, morbid. No appreciable masses. No appreciable hernias. EXTREMITIES: Morbidly obese. Left great toe, granulation distal plantar great toe, upon removal has exposed phalanx. ASSESSMENT AND PLAN: Osteomyelitis, left great toe. Would recommend amputation through the proximal phalanx with primary closure and home on oral antibiotics with a postoperative shoe and follow up in my office in 2 to 3 weeks for suture removal. The patient understands risks and benefits, consents. His hemoglobin is 9.9, white count 13, BUN 49, creatinine 2.54, representing chronic kidney disease. Chronic kidney disease, hypertension, insulin-dependent diabetes mellitus, metabolic syndrome, osteomyelitis of left great toe. Job ID: [id number]
--- NOTE | 2018-12-29 17:27 | CON ---
DATE OF CONSULTATION: 12/29/2018 REASON FOR CONSULTATION: Left foot inflammatory changes. HISTORY OF PRESENT ILLNESS: A 38-year-old, who has a history of prior CVA, type 2 diabetes, obesity, and hypertension, who lives at home with family members, although in the admit note states that he had been living in a half-way. He developed pain in the left first toe and went to the emergency room for evaluation. On arrival, there was evidence of tenderness and swelling of the toe. The x-rays were questionable and he was admitted. Initial temperature 98.5 and pulse 76. There was some swelling of the left foot and toe with some erythema and an area of necrosis at the tip of the left first toe. General Surgery has evaluated the patient. The impression was that he had osteomyelitis because of exposed phalanx. Currently , Mr. Cabrera is still with pain in the left foot. Denies any headaches. No visual symptoms, sore throat, odynophagia, or dysphagia. Mild dyspnea. No chest pain. No abdominal pain or diarrhea. No genitourinary symptoms. PAST MEDICAL HISTORY: Obesity, prior CVA with TIAs, hyperlipidemia, hypertension, and retinopathy. PAST SURGICAL HISTORY: Appendectomy and left knee arthroscopy. FAMILY HISTORY: Type 2 diabetes and hypertension. SOCIAL HISTORY: Chews tobacco. Lives with family. No alcoholic beverage use. ALLERGIES: NO KNOWN ALLERGIES. CURRENT MEDICATIONS: 1. Norvasc. 2. Ecotrin. 3. Lipitor. 4. Dulcolax. 5. Coreg. 6. Plavix. 7. Insulin. 8. Zosyn. 9. Tramadol. PHYSICAL EXAMINATION: VITAL SIGNS: Temperature 98.7, BP 130/81, pulse 62, respirations 18, and O2 saturation 96%. SKIN: Shows the left foot with moderate swelling. There is a scab, which is dark covering the tip of the left foot first toe. A little bit of yellow discoloration of the skin around this area and the toes are markedly tender all the way to the base. HEENT: The ocular movements are conjugate. Oral cavity with some missing teeth , oral cavity otherwise normal. NECK: Supple. No jugular vein distention. LUNGS: Symmetric clear breath sounds. HEART: S1 and S2. Regular rate. No S3 or S4. ABDOMEN: Soft, not distended or tender. No ascites. No bladder distention. MUSCULOSKELETAL: No joint inflammatory process outside involved area. Pulses are 1+ in dorsalis pedis. Cap refill appears to be normal. The patient has left hemiparesis from prior strokes. His cognitive function appears to be intact. LABORATORY DATA: White cell count 16.7 and down to 13.6, hemoglobin 9.9, platelets 390, and 73% neutrophils. Sodium 137, creatinine 2.54, AST 15, ALT 12, bilirubin 0.6, and alkaline phosphatase 135. CRP 8.54. Albumin 3.5. IMAGING STUDIES: Include a foot x-ray with slight indistinctness of the tuft of distal phalanx great toe. ASSESSMENT: 1. Obesity with type 2 diabetes. 2. Neuropathy. 3. Injury to the left first toe with pain, erythema in the scab covering the tip and the findings in the x-ray as well as the findings by General Surgery with apparent exposed distal phalanx of the left first toe. DISCUSSION: In the general surgeons physical exam description and assessment it is stated that the granulation tissue was removed. When I examined the patient, the only thing I saw was a dark scab covering the tip of the toe, may be under this scab, the phalanx is exposed, which would not be surprising. The mid foot region is swollen as well and he might have inflammatory process extending towards the mid foot. I would advise MRI of the foot if he is he will fit in the machine on Friday, his weight is still high for the MRI machine here in the hospital. In that case , would have to treat him with the partial amputation. Cultures and then the continue antimicrobial therapy with hoping for transition to oral regimen for discharge planning. We will have to see how he progresses through the hospital stay next few days and see if that swelling in the foot decreases most of the tenderness is restricted to the left first toe, so looks like most of the process is limited to that site. Job ID: [id number] [facility]
[2018-12-29] MEDS ORDERED: Vancomycin HCl 1.75 GM in Sodium Chloride 0.9% 500 ML IVPB SCH (20:00)
[2018-12-29] MEDS: Atorvastatin Calcium 20 MG TAB PO SCH (20:01)
[2018-12-29] MEDS ORDERED: Insulin Glargine 56 UNITS in Pre-Filled Syringe 1 EACH SC SCH (21:00)
[2018-12-29] MEDS ORDERED: Enoxaparin Sodium 30 MG/0.3 ML SYRINGE SC SCH (21:00)
[2018-12-29] MEDS: Insulin Glargine 25 UNITS in Pre-Filled Syringe 1 EACH SC SCH (22:11)
--- NOTE | 2018-12-29 22:49 | PDOC.PN ---
- Subjective Encounter Start Date: 12/29/18 Encounter Start Time: 16:00 Patient seen and examined for Osteomyelitis. No new complaints. No overnight events - Objective Resuscitation Status - Order Detail: 12/29/18 00:10 Resuscitation Status Routine Resuscitation Status: FULL: Full Resuscitation MAR Reviewed: Yes Vital Signs & Weight: Vital Signs (12 hours) Temp Pulse Resp BP Pulse Ox 12/29/18 22:00 95 12/29/18 20:52 98.8 F 60 16 116/59 L 95 12/29/18 16:00 99.1 F 62 18 134/75 93 L 12/29/18 11:00 98.7 F 62 18 132/81 96 Weight Weight 390 lb 8 oz I&O: 12/28/18 12/29/18 12/30/18 06:59 06:59 06:59 Intake Total 920 Balance 920 Result Diagrams: 12/29/18 06:24 12/29/18 06:24 Additional Labs: Accuchecks 12/29/18 12/29/18 12/29/18 20:42 16:27 11:43 POC Glucose 227 H 178 H 173 H 12/29/18 12/28/18 04:37 23:08 POC Glucose 174 H 183 H Radiology Reviewed by me: Yes (Foot XR - Osteomyelitis) Phys Exam - Physical Examination Constitutional: NAD HEENT: PERRLA Neck: no JVD Respiratory: no wheezing, no rhonchi no heaves/pulsations Cardiovascular: RRR, no rub no heaves/pulsations Gastrointestinal: soft, non-tender, no distention, positive bowel sounds Musculoskeletal: no edema dressing + Neurological: non-focal, normal sensation, moves all 4 limbs Psychiatric: normal affect, A&O x 3 Dx/Plan - Plan DVT proph w/lovenox, DVT proph w/SCDs 1. Sepsis due to Osteomyelitis 2. PHONG on CKD 3 3. DM2 4. Morbid Obesity BMI 57 5. Chronic Anemia 6. HTN PLAN: Await ID/Surg input Cont ASA/Plavix Cont IVF Cont current Atbx as below Monitor Vancomycin level Review of Systems - Review of Systems Respiratory: negative: Cough, Dry, Shortness of Breath, Hemoptysis, SOB with Excertion, Pleuritic Pain, Sputum, Wheezing Cardiovascular: negative: chest pain, palpitations, orthopnea, paroxysmal nocturnal dyspnea, edema, light headedness, other - Medications/Allergies Allergies/Adverse Reactions: Allergies Allergy/AdvReac Type Severity Reaction Status Date / Time No Known Drug Allergies Allergy Verified 11/06/18 03:05 Medications: Current Medications Acetaminophen (Tylenol) 1,000 mg PO Q6H PRN PRN Reason: Moderate to Severe Pain (6-10) Amlodipine Besylate (Norvasc) 10 mg PO DAILY [facility] Last Admin: 12/29/18 08:04 Dose: 10 mg Aspirin (Ecotrin) 325 mg PO DAILY [facility] Last Admin: 12/29/18 08:04 Dose: 325 mg Atorvastatin Calcium (Lipitor) 80 mg PO HS [facility] Last Admin: 12/29/18 20:01 Dose: 80 mg Bisacodyl (Dulcolax) 10 mg PO DAILYPRN PRN PRN Reason: Constipation Calcium Carbonate (Tums) 1,000 mg PO Q4H PRN PRN Reason: Heartburn or Indigestion Last Admin: 12/28/18 23:18 Dose: 1,000 mg Carvedilol (Coreg) 12.5 mg PO BID-[facility] Last Admin: 12/29/18 17:11 Dose: 12.5 mg Clopidogrel Bisulfate (Plavix) 75 mg PO DAILY [facility] Last Admin: 12/29/18 08:04 Dose: 75 mg Dextrose/Water (Dextrose 50%) 25 gm SLOW IVP PRN PRN PRN Reason: Hypoglycemia Enoxaparin Sodium (Lovenox) 30 mg SC 2100 [facility] Glucagon (Glucagon) 1 mg IM PRN PRN PRN Reason: Hypoglycemia Dextrose/Water (D5w) 1,000 mls @ 0 mls/hr IV .Q0M PRN PRN Reason: Hypoglycemia Piperacillin Sod/Tazobactam (Sod 2.25 gm/ Sodium Chloride) 100 mls @ 200 mls/ hr IVPB Q6HR [facility] Last Admin: 12/29/18 17:12 Dose: 100 mls Sodium Chloride (1/2 Normal Saline) 1,000 mls @ 100 mls/hr IV .Q10H [facility] Insulin Glargine 25 units/ (Miscellaneous Medication) 0.25 mls @ 0 mls/hr SC BID [facility] Last Admin: 12/29/18 22:11 Dose: Not Given Insulin Human Lispro (Humalog) 0 units SC .MODERATE SLIDING SC PRN PRN Reason: Moderate Correctional Scale Last Admin: 12/29/18 17:11 Dose: 2 unit Miscellaneous Medication (Pharmacy To Dose) 1 each IVPB PRN PRN PRN Reason: Pharmacy to dose Pantoprazole Sodium (Protonix) 40 mg PO DAILY [facility] Last Admin: 12/29/18 08:04 Dose: 40 mg Senna/Docusate Sodium (Senokot S) 2 tab PO BID PRN PRN Reason: Constipation Sodium Chloride (Flush - Normal Saline) 10 ml IVF PRN PRN PRN Reason: Saline Flush Last Admin: 12/29/18 08:06 Dose: 10 ml Tramadol HCl (Ultram) 50 mg PO Q6H PRN PRN Reason: Moderate Pain (4-6) Last Admin: 12/29/18 11:19 Dose: 50 mg
[2018-12-30] MEDS: Piperacillin/Tazobactam 2.25 GM in Sodium Chloride 0.9% 100 ML IVPB SCH ×4 (05:29→23:52)
[2018-12-30] MEDS: Sodium Chloride 0.45% 1,000 ML IV SCH ×2 (05:31→16:06)
[2018-12-30] MEDS: Carvedilol 25 MG TAB PO SCH ×2 (06:07→17:10)
[2018-12-30] MEDS: Aspirin 325 mg Enteric Coated Tablet PO SCH (08:35)
[2018-12-30] MEDS: Clopidogrel Bisulfate 75 MG TAB PO SCH (08:35)
[2018-12-30] MEDS: Amlodipine 10 MG TAB PO SCH (08:35)
[2018-12-30] MEDS: Insulin Glargine 25 UNITS in Pre-Filled Syringe 1 EACH SC SCH ×2 (08:35→20:37)
[2018-12-30] MEDS ORDERED: Fentanyl 100 MCG/2 ML VIAL ONE (15:25)
[2018-12-30] MEDS ORDERED: Ropivacaine 0.5% HCl/PF (150 MG/30 ML VIAL) ONE (15:25)
[2018-12-30] MEDS ORDERED: Ketamine 50 MG/ML (10ML VIAL) ONE (15:49)
[2018-12-30] MEDS ORDERED: Bacitracin Zinc Ointment 30 gm TUBE ONE (16:03)
[2018-12-30] MEDS: Atorvastatin Calcium 20 MG TAB PO SCH (20:39)
[2018-12-30] MEDS ORDERED: Enoxaparin Sodium 30 MG/0.3 ML SYRINGE SC SCH (21:00)
--- NOTE | 2018-12-30 22:24 | PDOC.PN ---
- Subjective Encounter Start Date: 12/30/18 Encounter Start Time: 11:30 Patient seen and examined for Osteomyelitis. No fever/chills. No new complaints. No overnight events - Objective Resuscitation Status - Order Detail: 12/29/18 00:10 Resuscitation Status Routine Resuscitation Status: FULL: Full Resuscitation MAR Reviewed: Yes Vital Signs & Weight: Vital Signs (12 hours) Temp Pulse Resp BP BP Pulse Ox 12/30/18 20:00 98.6 F 64 20 149/72 H 96 12/30/18 11:58 98.8 F 60 20 125/69 93 L Weight Weight 390 lb 8 oz I&O: 12/29/18 12/30/18 12/31/18 06:59 06:59 06:59 Intake Total 1620 800 Output Total 400 1400 Balance 1220 -600 Result Diagrams: 12/31/18 05:56 12/31/18 05:56 Additional Labs: Accuchecks 12/30/18 12/30/18 12/30/18 20:05 16:37 11:27 POC Glucose 177 H 140 H 152 H 12/30/18 12/30/18 10:52 05:33 POC Glucose 139 H 167 H Phys Exam - Physical Examination Constitutional: NAD Respiratory: no wheezing, no rhonchi Cardiovascular: RRR, no rub Gastrointestinal: soft, non-tender, positive bowel sounds Musculoskeletal: no edema toe dressing + Dx/Plan - Plan 1. Sepsis due to Osteomyelitis 2. PHONG on CKD 3 - improving 3. DM2 - on sliding scale/Lantus 4. Morbid Obesity BMI 57 5. Chronic Anemia 6. HTN PLAN: Cont current Atbx Surgery today AM labs Cont IVF Monitor Vancomycin level Cont other meds as below Review of Systems - Review of Systems Respiratory: negative: Cough, Dry, Shortness of Breath, Hemoptysis, SOB with Excertion, Pleuritic Pain, Sputum, Wheezing Cardiovascular: negative: chest pain, palpitations, orthopnea, paroxysmal nocturnal dyspnea, edema, light headedness, other - Medications/Allergies Allergies/Adverse Reactions: Allergies Allergy/AdvReac Type Severity Reaction Status Date / Time No Known Drug Allergies Allergy Verified 11/06/18 03:05 Medications: Current Medications Acetaminophen (Tylenol) 1,000 mg PO Q6H PRN PRN Reason: Moderate to Severe Pain (6-10) Amlodipine Besylate (Norvasc) 10 mg PO DAILY [facility] Last Admin: 12/30/18 08:35 Dose: Not Given Aspirin (Ecotrin) 325 mg PO DAILY [facility] Last Admin: 12/30/18 08:35 Dose: Not Given Atorvastatin Calcium (Lipitor) 80 mg PO HS [facility] Last Admin: 12/30/18 20:39 Dose: 80 mg Bisacodyl (Dulcolax) 10 mg PO DAILYPRN PRN PRN Reason: Constipation Calcium Carbonate (Tums) 1,000 mg PO Q4H PRN PRN Reason: Heartburn or Indigestion Last Admin: 12/28/18 23:18 Dose: 1,000 mg Carvedilol (Coreg) 12.5 mg PO BID-[facility] Last Admin: 12/30/18 17:10 Dose: 12.5 mg Clopidogrel Bisulfate (Plavix) 75 mg PO DAILY [facility] Last Admin: 12/30/18 08:35 Dose: Not Given Dextrose/Water (Dextrose 50%) 25 gm SLOW IVP PRN PRN PRN Reason: Hypoglycemia Enoxaparin Sodium (Lovenox) 30 mg SC 2100 [facility] Last Admin: 12/30/18 20:40 Dose: 30 mg Glucagon (Glucagon) 1 mg IM PRN PRN PRN Reason: Hypoglycemia Dextrose/Water (D5w) 1,000 mls @ 0 mls/hr IV .Q0M PRN PRN Reason: Hypoglycemia Piperacillin Sod/Tazobactam (Sod 2.25 gm/ Sodium Chloride) 100 mls @ 200 mls/ hr IVPB Q6HR [facility] Last Admin: 12/30/18 17:10 Dose: 100 mls Sodium Chloride (1/2 Normal Saline) 1,000 mls @ 100 mls/hr IV .Q10H [facility] Last Admin: 12/30/18 16:06 Dose: Not Given Insulin Glargine 25 units/ (Miscellaneous Medication) 0.25 mls @ 0 mls/hr SC BID [facility] Last Admin: 12/30/18 20:37 Dose: 0.25 mls Insulin Human Lispro (Humalog) 0 units SC .MODERATE SLIDING SC PRN PRN Reason: Moderate Correctional Scale Last Admin: 12/29/18 17:11 Dose: 2 unit Miscellaneous Medication (Pharmacy To Dose) 1 each IVPB PRN PRN PRN Reason: Pharmacy to dose Pantoprazole Sodium (Protonix) 40 mg PO DAILY [facility] Last Admin: 12/30/18 08:35 Dose: Not Given Senna/Docusate Sodium (Senokot S) 2 tab PO BID PRN PRN Reason: Constipation Sodium Chloride (Flush - Normal Saline) 10 ml IVF PRN PRN PRN Reason: Saline Flush Last Admin: 12/29/18 08:06 Dose: 10 ml Tramadol HCl (Ultram) 50 mg PO Q6H PRN PRN Reason: Moderate Pain (4-6) Last Admin: 12/29/18 11:19 Dose: 50 mg
[2018-12-31] MEDS: traMADol HCl 50 MG TAB PO PRN ×2 (00:47→06:30)
[2018-12-31] MEDS: Sodium Chloride 0.45% 1,000 ML IV SCH ×2 (03:35→07:56)
[2018-12-31] MEDS ORDERED: HYDROcodone/Acetaminophen 5/325 mg Tablet PO PRN ×2 (04:24)
[2018-12-31 06:25] LABS: #Basophils 0.1 thou/uL (0.0-0.2); #Eosinphils 0.7 thou/uL (0.0-0.7); #Lymphocytes 2.2 thou/uL (1.20-3.40); #Monocytes 1.1 thou/uL (0.11-0.59); #Neutrophils 9.3 thou/uL (1.40-6.50); %Basophils 0.8 % (0.0-1.0); %Eosinophils 5.1 % (0.0-10.0); %Lymphocytes 16.3 % (21.0-51.0); %Monocytes 8.5 % (0.0-10.0); %Neutrophils 69.2 % (42.0-75.0); Hemoglobin 9.2 g/dL (14.0-18.0); Mean Corpuscular HGB CONC 30.7 g/dL (32.0-36.0); Mean Corpuscular Hemoglobin 26.3 pg (27.0-31.0); Mean Corpuscular Volume 85.5 fL (78.0-98.0); Mean Platelet Volume 9.1 fL (7.4-10.4); Platelet Count 341 thou/uL (130-400); Red Blood Cell (RBC) Count 3.51 mill/uL (4.70-6.10); White Blood Cell (WBC) Count 13.4 thou/uL (4.8-10.8)
[2018-12-31] MEDS: Piperacillin/Tazobactam 2.25 GM in Sodium Chloride 0.9% 100 ML IVPB SCH ×2 (06:30→12:07)
[2018-12-31] MEDS: HumaLOG 300 UNITS/3 ML VIAL SC PRN (06:31)
[2018-12-31 06:35] LABS: Anion Gap 15 mmol/L (10-20); BUN (Urea Nitrogen) 41 mg/dL (8.9-20.6); Calc. Creatinine Clearance 109 mL/min (70-130); Calcium 8.8 mg/dL (7.8-10.44); Carbon Dioxide 17 mmol/L (22-29); Chloride 112 mmol/L (98-107); Estimated GFR-MDRD 38; Glucose 149 mg/dL (70-105); Potassium 4.6 mmol/L (3.5-5.1); Sodium 139 mmol/L (136-145)
[2018-12-31] MEDS: Amlodipine 10 MG TAB PO SCH (07:55)
[2018-12-31] MEDS: Carvedilol 25 MG TAB PO SCH (07:55)
[2018-12-31] MEDS: Insulin Glargine 25 UNITS in Pre-Filled Syringe 1 EACH SC SCH (07:55)
[2018-12-31] MEDS: Aspirin 325 mg Enteric Coated Tablet PO SCH (07:55)
[2018-12-31] MEDS: Clopidogrel Bisulfate 75 MG TAB PO SCH (07:55)
[2018-12-31 11:48] VITALS: BP 130/79; TEMP 97.8
--- NOTE | 2018-12-31 13:11 | DIS ---
DATE OF ADMISSION: 12/28/2018 DATE OF DISCHARGE: 12/31/2018 DISCHARGE DISPOSITION: Home. FOLLOWUP: Follow up with primary care physician at [facility] in 1 week. ALLERGIES: NO KNOWN DRUG ALLERGIES. DISCHARGE MEDICATION: 1. Clindamycin 300 mg four times daily for next 10 days. 2. Amlodipine 10 mg daily. 3. Aspirin 325 mg daily. 4. Lipitor 80 mg at bedtime. 5. Carvedilol 12.5 mg b.i.d. 6. Plavix 75 mg daily. 7. Levemir 56 units at bedtime. 8. Florastor 250 mg daily. 9. Tylenol as needed. 10. Artificial Tears as needed. 11. Tums as needed. 12. Clonidine as needed for systolic blood pressure over 180. 13. Hydralazine 25 mg three times a day. 14. The patient was advised to hold lisinopril-HCTZ for now due to renal dysfunction. The patient was seen and examined on the day of discharge. Denies any new complaints. No chest pain, shortness of breath, fever or chills reported. BRIEF HOSPITAL COURSE: The patient is a 38-year-old male with diabetes mellitus type 2, hypertension, morbid obesity, and CVA in the past, presented to the hospital with left toe pain. His foot x-ray in the emergency room showed changes suspicious for osteomyelitis. His ESR was greater than 130 with a WBC count of 16.7. He was seen by General Surgery and Infectious Disease. He underwent left toe amputation on [address] Henning. The patient has been cleared by Dr. Henning for discharge. Dr. Zavala recommended clindamycin for next 10 days. He has been cleared by consultants for discharge. FINAL DIAGNOSES: 1. Sepsis secondary to left great toe osteomyelitis status post amputation. 2. Acute kidney injury on chronic kidney disease stage 3. His creatinine on the day of discharge is 2.35. His baseline creatinine is 1.87. He was advised to hold lisinopril and HCTZ. He was also advised to follow up with Dr. Rodriges, Nephrology next week. 3. Morbid obesity with a BMI of 57.7. 4. Diabetes mellitus type 2. 5. Chronic anemia. 6. Hypertension. 7. Recent cerebrovascular accident on aspirin and Plavix. 8. Diabetic neuropathy. PLAN: 1. Repeat basic metabolic profile next week is recommended. Primary care physician advised to follow. 2. Total time coordinating the discharge of this patient was 34 minutes. 3. The patient was extensively counseled on dietary modifications. Job ID: [id number]
--- NOTE | 2019-01-01 09:27 | OP ---
DATE OF PROCEDURE: 12/28/2018 PREOPERATIVE DIAGNOSES: Osteomyelitis, left great toe. Diabetic toe infection, morbid obesity, metabolic syndrome. POSTOPERATIVE DIAGNOSES: Osteomyelitis, left great toe. Diabetic toe infection, morbid obesity, metabolic syndrome. PROCEDURE PERFORMED: Amputation of the left great toe through the proximal phalanx with primary closure. ANESTHESIA: Sedation, local, ankle block. DESCRIPTION OF PROCEDURE: The patient was taken to the operating room, where under the above-mentioned anesthesia, his left lower extremity was prepared with ChloraPrep and draped in routine fashion. Incision was made for fishmouth incision for amputation of left great toe through the proximal phalanx. Incision was carried down to the skin and subcutaneous tissue in the proximal phalanx, transected with a bone cutter rongeur, irrigated, subcutaneous tissue was approximated with 3-0 Monocryl, skin with 4-0 Prolene. Antibiotic ointment and sterile dressing applied. The patient tolerated the procedure well. Job ID: [id number]
== END 2018-12-31 14:45 | disposition home or self-care (01) | DRG 854 ==
LOC: ERS 16:38 → T4-B 19:05
PROVIDERS: ADMIT Emergency Medicine; ATTEND Emergency Medicine
PROC: 0Y6Q0Z1 Detachment at Left 1st Toe, High, Open Approach (ICD-10-PCS; principal; 2018-12-28)
DX: A41.9 Sepsis, unspecified organism (principal); M86.8X7 Other osteomyelitis, ankle and foot; Z68.43 Body mass index [BMI] 50.0-59.9, adult; N17.9 Acute kidney failure, unspecified; E11.69 Type 2 diabetes mellitus with other specified complication; E78.5 Hyperlipidemia, unspecified; E11.319 Type 2 diabetes mellitus with unspecified diabetic retinopathy without macular edema; E11.22 Type 2 diabetes mellitus with diabetic chronic kidney disease; I12.9 Hypertensive chronic kidney disease with stage 1 through stage 4 chronic kidney disease, or unspecified chronic kidney disease; E88.81 Metabolic syndrome and other insulin resistance; E66.01 Morbid (severe) obesity due to excess calories; N18.3 Chronic kidney disease, stage 3 (moderate); D64.9 Anemia, unspecified; E11.40 Type 2 diabetes mellitus with diabetic neuropathy, unspecified; Z86.73 Personal history of transient ischemic attack (TIA), and cerebral infarction without residual deficits; Z98.41 Cataract extraction status, right eye; Z98.42 Cataract extraction status, left eye; Z90.49 Acquired absence of other specified parts of digestive tract; Z79.4 Long term (current) use of insulin
CPT/HCPCS: 36415; 36416; 80048; 82010; 82330; 82803; 83605; 83690; 85025; 85652; 86140; 87040; 87070; 87076; 87205; 88305; 88311; 96365; 96367; J1650; J1825; J2543; J2795; J3010; J3370; J3490

== ENCOUNTER 2020-12-26 12:01 | Emergency (ER) | payer MEDICARE ==
[2020-12-26 16:24] LABS: #Basophils 0.1 thou/uL (0.0-0.2); #Eosinphils 0.3 thou/uL (0.0-0.7); #Monocytes 0.9 thou/uL (0.11-0.59); #Neutrophils 8.9 thou/uL (1.40-6.50); %Basophils 0.7 % (0.0-1.0); %Eosinophils 2.8 % (0.0-10.0); %Lymphocytes 16.1 % (21.0-51.0); %Monocytes 7.7 % (0.0-10.0); %Neutrophils 72.7 % (42.0-75.0); Hemoglobin 14.4 g/dL (14.0-18.0); Mean Corpuscular HGB CONC 31.3 g/dL (32.0-36.0); Mean Corpuscular Hemoglobin 27.5 pg (27.0-31.0); Mean Corpuscular Volume 88.1 fL (78.0-98.0); Mean Platelet Volume 9.5 fL (7.4-10.4); Platelet Count 327 thou/uL (130-400); Red Blood Cell (RBC) Count 5.23 mill/uL (4.70-6.10); White Blood Cell (WBC) Count 12.3 thou/uL (4.8-10.8)
[2020-12-26 16:53] LABS: ALT (SGPT) 28 U/L (8-55); AST (SGOT) 37 U/L (5-34); Albumin 2.2 g/dL (3.5-5.0); Alkaline Phosphatase 139 U/L (40-110); Anion Gap 15 mmol/L (10-20); BUN (Urea Nitrogen) 14 mg/dL (8.9-20.6); Bilirubin, Total 1.1 mg/dL (0.2-1.2); Calc. Creatinine Clearance 0 mL/min (70-130); Calcium 8.3 mg/dL (7.8-10.44); Carbon Dioxide 25 mmol/L (22-29); Chloride 104 mmol/L (98-107); Globulin 3.1 g/dL (2.4-3.5); Glucose 302 mg/dL (70-105); Potassium 3.8 mmol/L (3.5-5.1); Protein, Total 5.3 g/dL (6.0-8.3); Sodium 140 mmol/L (136-145)
[2020-12-26 17:33] LABS: Actual Bicarbonate (HCO3v) 26 mEq/L (22-28); Analyzer IN Cardio ER; Base Excess 0.1 mEq/L (-2.0 to +3.0); Calcium, Ionized (venous) 1.03 mmol/L (1.16-1.32); Chloride (VBG) 107 mmol/L (98-106); Hemoglobin (Hb) 15.1 g/dL (13.2-17.3); Potassium (VBG) 3.54 mmol/L (3.70-5.30); Sodium 139.4 mmol/L (133-146); pH (venous) 7.35 (7.32-7.43)
== END 2020-12-26 18:25 | disposition home or self-care (01) ==
LOC: ERS 12:01
DX: S93.401A Sprain of unspecified ligament of right ankle, initial encounter (principal); S80.01XA Contusion of right knee, initial encounter; I13.0 Hypertensive heart and chronic kidney disease with heart failure and stage 1 through stage 4 chronic kidney disease, or unspecified chronic kidney disease; E11.22 Type 2 diabetes mellitus with diabetic chronic kidney disease; N18.9 Chronic kidney disease, unspecified; I50.9 Heart failure, unspecified; E78.5 Hyperlipidemia, unspecified; E78.00 Pure hypercholesterolemia, unspecified; F17.220 Nicotine dependence, chewing tobacco, uncomplicated; Z86.73 Personal history of transient ischemic attack (TIA), and cerebral infarction without residual deficits; W18.30XA Fall on same level, unspecified, initial encounter
CPT/HCPCS: 36415; 70450; 80053; 82010; 82805; 85025; 93005